=== PATIENT | female | born 1945 | race Caucasian/White ===

== ENCOUNTER 2019-08-26 09:27 | Day surgery (SDC) | payer OTHER ==
[2019-08-22 10:51] LABS: Protime INR 0.89
--- NOTE | 2019-08-22 10:57 | RAD REPORT ---
EXAM DESCRIPTION: Shaan Gordon (2 Views)08/22/2019 10:50 am CLINICAL HISTORY: Preop for heart catheterization COMPARISON: 2017 FINDINGS: The lungs appear clear of acute infiltrate. The heart is normal size IMPRESSION: No acute abnormalities displayed
--- OUTSIDE RECORDS SUMMARY | 2019-08-26 09:29 | XMS REPORT ---
:1945 [facility] Address [address] [place] [address] Dr. Woods [address] [place] [id number] Care Team Providers Name Role Phone Unavailable Unavailable Unavailable Problems This patient has no known problems. Allergies, Adverse Reactions, Alerts This patient has no known allergies or adverse reactions. Medications This patient has no known medications. Encounters Start End Encounter Admission Attending Care Care Encounter Date/Time Date/Time Type Type Clinicians Facility Department ID 2019-06-19 2019-06-19 Outpatient [facility] [id number] 08:42:00 08:42:00
[2019-08-26] MEDS ORDERED: NA CHLORIDE 0.9% 500 ML ONE (09:44)
[2019-08-26] MEDS ORDERED: HEPA 1000U/500MLS 1,000 UNIT/500 ML BAG IV ONE (11:11)
[2019-08-26] MEDS ORDERED: LIDOCAINE 1% MPF 30 ML VIAL ONE (11:12)
[2019-08-26] MEDS ORDERED: ATROPINE SULF 1 MG/10 ML SYR IV ONE (11:20)
[2019-08-26] MEDS ORDERED: MIDAZOLAM HCL 2 MG/2 ML INJ ONE ×2 (11:20→11:26)
[2019-08-26] MEDS ORDERED: FENTANYL CITR 100 MCG/2 ML ONE (11:20)
[2019-08-26] MEDS ORDERED: NA CHLORIDE 0.9% 0 ML ONE (11:21)
[2019-08-26 13:52] VITALS: BP 101/58; TEMP 97.1; O2SAT 98
--- NOTE | 2019-08-26 13:56 | OP ---
Surgeon: Kennedy Hanson MD Ms. Sim is a 74-year-old Latin-[place] woman with multiple cardiac risk factors who has been see n in my office in 2017, had a normal stress test and echocardiogram then. She presented to the [facility] with classic symptoms for unstable angina. I felt more comfortable knowing her coronary anatomy fo r sure. She was scheduled for an outpatient heart catheterization and selective coronary arteriogram . She was admitted to the [facility] as an outpatient on 08/26/2019, prepped and draped in the routine sterile fashion. Given Versed and fentanyl for sedation. Right common femoral access was obtained with a 6-Amharic sheath successfully. Angiography there was normal. Angio-Seal was used to close the case. Selective coronary arteriography was done with 6-Amharic Mariaa catheter, left and right. Th e left main was injected and showed normal coronaries. Left dominant system. The RCA was injected w ith JR4, was small, nondominant, free of disease. There were no complications. Blood Loss: 5 cc. Postoperative Diagnoses: Chest pain with normal heart catheterization, normal coronaries. We will continue medical therapy Anesthesia: Boo Jones. Patient will be observed for 2 hours after bedrest. She will go home after that and she will see me in the office in the next 2 weeks. I will discuss the case further with Dr. Shah. HE/SALOMON Voice ID: [id number] Report ID: [id number]
== END 2019-08-26 13:55 | disposition home health service (06) ==
LOC: CCL 09:27
DX: R07.9 Chest pain, unspecified (principal); R06.02 Shortness of breath; J44.9 Chronic obstructive pulmonary disease, unspecified; E78.5 Hyperlipidemia, unspecified; E78.6 Lipoprotein deficiency; C90.00 Multiple myeloma not having achieved remission; F32.9 Major depressive disorder, single episode, unspecified; Z82.49 Family history of ischemic heart disease and other diseases of the circulatory system
CPT/HCPCS: 36415; 85610; 85730; 71046; 93454; C1893; C1760; J2250 ×2; J3010; J7040; J0583

== ENCOUNTER 2020-06-07 08:15 | Emergency (ER) | payer OTHER ==
--- OUTSIDE RECORDS SUMMARY | 2020-06-07 08:42 | XMS REPORT | Continuity of Care Document ---
:1945 Author Organization [facility] t Address [address] [place] [address] Care Team Providers Name Role Phone Daniel STUBBS Primary Care Physician Unavailable Dc CHAVES, Johnna. Attending Clinician Eladia BLAS C Attending Clinician Daniel Stubbs MD Attending Clinician Rex PATEL, R Attending Clinician Unavailable Radha MORGAN, A Attending Clinician Jose CHAVES Attending Clinician Unavailable Terrell Mas MD Attending Clinician Uri PATEL Attending Clinician Unavailable Payers Payer Name Policy Type Policy Effective Date Expiration Date Sour ce Number MEDICAREMEDICARE PART [id number] 2008 MD Torres A AND 00:00:00 [id number]-P [id number] [place], [facility] AETNA [facility] [id number] 2015 MD Torres SUPPLEMENTAETNA [facility] 00:00:00 SUPPLEMENT-SECONDARY [id number] 2016 -PresentMedigap Problems This patient has no known problems. Allergies, Adverse Reactions, Alerts This patient has no known allergies or adverse reactions. Family History Family Member Diagnosis Comments Start Date Stop Date Source Natural daughter Diabetes Sony son Natural father Prostate cancer MD Megan baez Natural father Skin cancer MD Iverson on Maternal grandfather -Unknown cancer MD Torres Maternal grandmother -Unknown cancer MD Torres Paternal aunt Diabetes MD Torres Paternal uncle Diabetes MD Harper hemphill Social History Social Habit Start Date Stop Date Quantity Comments Source Sex Assigned At MD Iverson on Tobacco use and 2019-11-03 2019-11-03 Never used MD Iverson on exposure 00:00:00 00:00:00 Alcohol intake 2019-11-03 2019-11-03 Lifetime MD Harper hemphill 00:00:00 00:00:00 non-drinker (finding) Smoking Status Start Date Stop Date Source Never smoker MD Torres Medications Ordered Filled Start Stop Current Ordering Indication Dosage Frequency Signature Comments Components Source Medication Medication Date Date Medication? Clinician (SIG) Name Name loratadine/ 2020-0 Yes 1{tbl} Take 1 MD pseudoephed 5-29 tablet by And erso kadi 21:55: mouth as n (CLARITIN-D 28 needed. 24 HOUR ORAL) melatonin 2020-0 Yes 1{capsu Take 1 MD 10 mg cap 5-29 le} capsule by Dane rso 21:55: mouth at n 28 bedtime. diphenhydrA 2020-0 Yes 25mg Take 25 mg MD MINE (Sleep 5-29 by mouth Dane rso Aid, 21:55: nightly as n diphenhydrA 28 needed for MINE,) 25 sleep. mg tablet fluticasone 2020-0 Yes 1{puff} Inhale 1 MD propionate- 5-29 puff by Sony so salmeterol 21:53: mouth 2 n (ADVAIR) 54 (two) 250 mcg-50 times a mcg/inhalat day as ion diskus needed. inhaler donepezil 2020-0 Yes 10mg Take 10 mg MD (ARICEPT) 5-15 by mouth Kishor o 10 mg 00:00: at n tablet 00 bedtime. traMADol 2020-0 Yes 50mg 50 mg 2 MD (ULTRAM) 50 5-12 (two) Anderso mg tablet 00:00: times a n 00 day as needed. hydroxychlo 2020-0 Yes 200mg Take 200 M D roquine 5-08 mg by Anderso (PLAQUENIL) 00:00: mouth n 200 mg 00 twice tablet daily. gabapentin 2020-0 Yes 200mg Take 200 MD (NEURONTIN) 5-08 mg by Anderso 100 mg 00:00: mouth at n capsule 00 bedtime. alendronate 2020-0 Yes 70mg Take 70 mg MD (FOSAMAX) 5-05 by mouth Kishor o 70 mg 00:00: every 7 n tablet 00 days. On Mondays citalopram Yes 20mg Take 20 mg M D (CeleXA) 20 4- by mouth Dane rso mg tablet 00:00: daily. n 00 sulfaSALAzi Yes 1000mg 1,000 mg MD lucio 4-24 twice Anderso (AZULFIDINE 00:00: daily. n ) 500 mg 00 tablet pravastatin Yes 40mg Take 40 mg MD (PRAVACHOL) 3-19 by mouth Dane rso 40 mg 00:00: daily. n tablet 00 Vital Signs Vital Name Observation Time Observation Value Comments Source Body temperature 2019-11-03 15:37:00 36.5 Bushra MD Keira carpenter Body height 2019-11-03 15:37:00 154 cm MD Sony merrill Body weight 2019-11-03 15:37:00 71.8 kg Sony garfield BMI 2019-11-03 15:37:00 30.27 kg/m2 MD Sony merrill Systolic blood pressure 2019-11-03 15:32:22 131 mm[Hg] MD Torres Diastolic blood pressure 2019-11-03 15:32:22 60 mm[Hg] MD Torres Heart rate 2019-11-03 15:32:22 65 /min MD Millerpayam merrill Respiratory rate 2019-11-03 15:32:22 18 /min MD Keira carpenter Oxygen saturation in 2019-11-03 15:32:22 97 /min MD Torres Arterial blood by Pulse oximetry Procedures Procedure Date / Time Performed Performing Clinician [facility] e URINE TOTAL PROTEIN 2019-11-09 14:50:00 Magdalena Stubbs MD Sony son .TOTAL VOLUME 2019-11-09 14:50:00 Magdalena Stubbs MD .DR. CHENG U PROT ELEC PATH 2019-11-09 14:50:00 Gisselle Montilla MD REVIEW .DR. CHENG UIFE PATH REVIEW 2019-11-09 14:50:00 Gisselle Montilla MD COMPLETE BLOOD COUNT W/ 2019-11-03 18:04:00 Gisselle Montilla MD DIFFERENTIAL PROTHROMBIN TIME 2019-11-03 18:04:00 Gisselle Montilla MD PARTIAL THROMBOPLASTIN TIME 2019-11-03 18:04:00 Gisselle Montilla MD TYPE AND SCREEN 2019-11-03 18:04:00 Gisselle Montilla MD COMPREHENSIVE METABOLIC PANEL 2019-11-03 18:04:00 Gisselle Montilla MD MAGNESIUM LEVEL 2019-11-03 18:04:00 Gisselle Montilla MD PHOSPHORUS LEVEL 2019-11-03 18:04:00 Gisselle Montilla MD URIC ACID 2019-11-03 18:04:00 Gisselle Montilla MD IMMUNOGLOBULIN M SERUM 2019-11-03 18:04:00 Gisselle Montilla MD derson FREE LAMBDA LIGHT CHAIN 2019-11-03 18:04:00 Gisselle Montilla MD nderson IMMUNOFIXATION 2019-11-03 18:04:00 Gisselle Montilla MD ELECTROPHORESIS BETA 2 MICROGLOBULIN 2019-11-03 18:04:00 Gisselle Montilla MD Dane rson LACTATE DEHYDROGENASE 2019-11-03 18:04:00 Gisselle Montilla MD And erson THYROID STIMULATING HORMONE 2019-11-03 18:04:00 Gisselle Montilla MD FREE THYROXINE 2019-11-03 18:04:00 Gisselle Montilla MD HEMOGLOBIN A1C 2019-11-03 18:04:00 Gisselle Montilla MD VITAMIN D 25 HYDROXY LEVEL 2019-11-03 18:04:00 Gisselle Montilla HEPATITIS B CORE ANTIBODY 2019-11-03 18:04:00 Gisselle Montilla MD HEPATITIS C VIRUS ANTIBODY 2019-11-03 18:04:00 Gisselle Montilla HC HIV 1/2 AG AND AB 4TH GEN 2019-11-03 18:04:00 Gisselle Montilla MD Results CBC 2019-11-03 18:04:00 Gisselle Montilla MD MANUAL DIFFERENTIAL 2019-11-03 18:04:00 Gisselle Montilla MD GLUCOSE LEVEL 2019-11-03 18:04:00 Gisselle Montilla MD BLOOD UREA NITROGEN 2019-11-03 18:04:00 Gisselle Montilla MD ELECTROLYTE PANEL 2019-11-03 18:04:00 Gisselle Montilla MD Andtono n SERUM CREATININE 2019-11-03 18:04:00 Gisselle Montilla MD .GLOMERULAR FILTRATION RATE 2019-11-03 18:04:00 Gisselle Montilla MD CALCIUM LEVEL TOTAL 2019-11-03 18:04:00 Gisselle Montilla MD Sony son ALBUMIN LEVEL 2019-11-03 18:04:00 Gisselle Montilla MD ALKALINE PHOSPHATASE 2019-11-03 18:04:00 Gisselle Montilla MD rson ALANINE AMINOTRANSFERASE 2019-11-03 18:04:00 Gisselle Montilla MD ASPARTATE AMINOTRANSFERASE 2019-11-03 18:04:00 Gisselle Montilla TOTAL PROTEIN 2019-11-03 18:04:00 Gisselle Montilla MD FRACTIONATED BILIRUBIN 2019-11-03 18:04:00 Gisselle Montilla MD derson ABORH 2019-11-03 18:04:00 Gisselle Montilla MD ANTIBODY SCREEN 2019-11-03 18:04:00 Gisselle Montilla MD FREE KAPPA/FREE LAMBDA RATIO 2019-11-03 18:04:00 Gisselle Montilla MD CLOT EXPIRATION DATE 2019-11-03 18:04:00 Gisselle Montilla MD rson TMP INTERPRETATION ANTIBODY 2019-11-03 18:04:00 Gisselle Montilla MD SCREEN NEGATIVE TMP HIV 1/2 AG&AB PATH INTERP 2019-11-03 18:04:00 Gisselle Montilla MD TMP HBSAG INTERP 2019-11-03 18:04:00 Gisselle Montilla MD TMP HCVAB INTERP 2019-11-03 18:04:00 Gisselle Montilla MD TMP HBCAB INTERP 2019-11-03 18:04:00 Gisselle Montilla MD .DR. HURD PROT ELEC PATH 2019-11-03 18:04:00 Gisselle Montilla MD REVIEW .DR. HURD SHAYLA PATH REVIEW 2019-11-03 18:04:00 Gisselle Montilla CONFIRM ABORH TYPE 2019-11-03 17:56:00 Magdalena Stubbs MD on XR BONE SURVEY COMPLETE 2019-11-03 17:55:36 Gisselle Montilla MD nderson BONE MARROW REFERRAL 2019-09-02 00:00:00 System, Provider Not MD Torres In HEMATOPATHOLOGY BONE MARROW 2019-09-01 14:42:04 Conversion, Julio C Torres DIFFERENTIAL OSI CHEST 2019-08-22 20:57:12 Magdalena Stubbs MD OSI MRI UPPER EXT 2019-08-21 20:57:35 Magdalena Stubbs MD OSI MRI UPPER EXT 2019-08-21 20:57:24 Magdalena Stubbs MD OSI KNEE 2019-08-11 21:58:00 Magdalena Stubbs MD OSI KNEE 2019-08-11 21:57:48 Magdalena Stubbs MD OSI PET CT SKULL TO MID THIGH 2019-07-17 13:51:55 Phani Gordillo dma, MD BONE MARROW REFERRAL HISTORIC 2019-06-19 18:00:00 Conversion, Phani Torres Encounters Start End Encounter Admission Attending Care Care Encounter Source Date/Time Date/Time Type Type Clinicians Facility Department ID 2019-06-19 2019-06-19 Outpatient [facility] 08:42:00 08:42:00 Results Test Description Test Time Test Comments Results Result Comments Source Urine SHAYLA Path Review 2019-11-11 16:13:04 Test Item Value Reference Range Interpretation Comme nts UIFE The urine PABLO Bunch protein MD Iggy CHENG 1018 4Dictated by: PABLO CHENG MD - Int immunofixation [id number] Date/Time: 11.11.2019 11:13 AM CDT (test electrophoretic Transcribed Date/Time: 11.11.2019 11:13 AM CDTElectronically code = patterns Signed By: NELLA CHENG MD - [id number] on 11.11.2019 11:13 AM 7917) obtained with the use of antisera against IgG, IgA, IgM, bound kappa and bound lambda light chains, free kappa and free 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 MD TorresIFE [id number] 16:13:03 Test Item Value Reference Range Interpretation Comments UIFE (test code = [employer] 7916) ABIGAIL (test code = ABIGAIL) Schedule labs after new patient clinic visit. MD TorresUrine Prot Electrophoresis Path [id number] 16:13:02U ProE Path IntThe urine protein electrophoretic pattern shows a peak in the mid gamma region. It isconfirmed to be a monotypic free kappa light chain by SHAYLA studies. 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 The current Bence-Rivas protein excretion is 98 mg/day. Comment: MD Iggy RUBIO [id number] by: ELISEO RUBIO84Dictated Date/Time: 11.11.2019 11:13 AM CDT Transcribed Date/Time: 11.11.2019 11:13 AM CDTElectronically Signed By: MD Iggy RUBIO [id number] on 11.11.2019 11:13 AM [facility] Protein Electrophoresis [id number] 16:13:01 Test Item Value Reference Range Interpretation Comments U Albumin % (test code = 19.9 % 30-50 L 7676) U Glob (test code = 8520) 37.1 % 50-66 L U Bence Rivas (test code = 43.0 % 0-0 H 7696) U BJP/TV (test code = 98 7691) ABIGAIL (test code = ABIGAIL) Schedule labs after new patient clinic visit. Lab Interpretation (test Abnormal code = 59398-6) MD TorresIpohsmrp94aa Urine Total [id number] 04:39:24 Test Item Value Reference Range Interpretation Comments UTP (test code = 7921) 12 mg/dL <=149 UTP/TV (test code = 7923) 228 MD TorresTotal [id number] 03:33:21 Test Item Value Reference Range Interpretation Comments Total Volume (test code = 7650) 1900 mL 9742-2955 H Hrs Collected (test code = 5928) 24 Start Date (test code = 7382) 11/08/2019 End Date (test code = 5510) 11/09/2019 U24 Comment (test code = 8547) 09:50am Lab Interpretation (test code = Abnormal 32004-2) MD TorresProtein Electrophoresis Path [id number] 19:46:40 Test Item Value Reference Range Interpretation Comments SPE Path The serum protein Interp (test electrophoretic code = 7285) pattern shows a AGUILAR HURD MD protein peak in the PHD 140 6Dictated by: gamma region which is DOMINIK HURD MD [place]D [place] be 43155Asujdmx d positive for an IgA Date/Justo e: 11.05.2019 kappa M-protein by 14:46 PM CDT immunofixation Transcribed D ate/Time: studies. Normal 11.05.2019 1 4:46 PM polyclonal CDTElectronical ly immunoglobulins are Signed B y: DOMINIK also decreased. 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 Comment: ___ DOMINIK HURD MD PHD [id number] by: DOMINIK HURDRALPH [facility]. [facility] [id number] Date/Time: 11.05.2019 14:46 PM CDT Transcribed Date/Time: 11.05.2019 14:46 PM CDTElectronically Signed By: DOMINIK HURD MD PHD [id number] on 11.05.2019 14:[address] [facility] [id number] 19:46:38 Test Item Value Reference Range Interpretation Comments SHAYLA (test code = [place] + [place] 5948) ABIGAIL (test code = ABIGAIL) Schedule labs after new patient clinic visit. MD Asif Protein [id number] 19:46:37 Test Item Value Reference Range Interpretation Comments TOT PROTEIN (test code = 7.6 6.4- 8.3 gm/dL 8545) Albumin (test code = 4.5 3.6- 5.4 gm/dL 1751-7) Alpha 1 Globulin (test 0.3 0.2- 0.4 gm/dL code = 2865-4) Alpha 2 Globulin (test 0.6 0.5- 1.0 gm/dL code = 2868-8) Beta Globulin (test code = 0.7 0.5- 1.1 gm/dL 2871-2) Gamma Globulin (test code 1.5 0.7- 1.6 gm/dL = 2874-6) Paraprotein1 (test code = 1.0 0.0- 0.0 gm/dL H 11227-0) ABIGAIL (test code = ABIGAIL) Schedule labs after new patient clinic visit. Lab Interpretation (test Abnormal code = 58722-1) MD Oneill Interpretation Antibody Screen [id number] 13:26:22 Test Item Value Reference Range Interpretation Comments TMP Auto Neg At the present ABSC Interp time, patient (test code = plasma shows no ____DALE GARCIA MD - 4735) evidence of RBC 51489Axfhici d by: DALE alloantibodies. MD Iggy VOGT 25901Vspzmxkk D ate/Time: 11.04.2019 8:26 AM CDT Transcribed Rick e/Time: 11.04.2019 8:26 AM CDTElectronical ly Signed By: MD Iggy MADDEN [id number] on 11.03 8:26 AM Jonathan Oneill HIV 1/2 Ag&Ab Path [id number] 13:19:56 Test Item Value Reference Range Interpretation Comments HIV 1/2 Ag&Ab Negative for Interp (test HIV-1 antigen and code = 9394) HIV-1/HIV-2 ____DALE CHAVIRA MD - [place]. [place] 80229Xiqncnmo by: DALE laboratory CARLOS GARCIA MD - evidence of HIV 83817Gctxtuz d Date/Time: infection. If 11.04.2019 8:1 9 AM CDT acute HIV Transcribed Rick e/Time: infection is 11.04.2019 8:19 AM suspected, CDTElectronical ly Signed consider testing By: DALE GARCIA MD - for HIV-1 RNA. [id number] on 8:19 AM Jonathan Oneill HCV Ab Path [id number] 13:19:55 Test Item Value Reference Range Interpretation Comments HCV Ab Path There is NO Interp (test serologic code = 8923) evidence of ____DALE CHAVIRA MD - Hepatitis C 22323Pfsoafgl b y: DALE virus antibody. CARLOS GARCIA MD - 18147Kubzjuug D ate/Time: 11.04.2019 8:19 AM CDT Transcribed Rick e/Time: 11.04.2019 8:19 AM CDTElectronical ly Signed By: DALE CHAVIRA MD - [id number] on 11.03 8:19 AM Jonathan Oneill HBsAg Path [id number] 13:19:54 Test Item Value Reference Range Interpretation Comments HBsAg Path There is NO Interp (test serologic code = 8922) evidence of ____DALE CHAVIRA MD - detectable 23507Tzprjwwx b y: DALE Hepatitis B virus Daniel VOGT - surface antigen. 01960Abzbaj ed Date/Time: 11.04.2019 8:19 AM CDT Transcribed Rick e/Time: 11.04.2019 8:19 AM CDTElectronical ly Signed By: DALE CHAVIRA MD - [id number] on 11.03 8:19 AM Jonathan Oneill HBcAb Path [id number] 13:17:51 Test Item Value Reference Range Interpretation Comments HBcAb Path There is NO Interp (test serologic code = 8924) evidence of ____DALE CHAVIRA MD - Hepatitis B 08813Ttkcdama b y: DALE newman core CARLOS GARCIA MD - antibody. 52293Byvxaoaj D ate/Time: 11.04.2019 8:17 AM CDT Transcribed Rick e/Time: 11.04.2019 8:17 AM CDTElectronical ly Signed By: MD Iggy MADDEN [id number] on 11.03 8:17 AM C MD Estrada B Total Ig Core Ab (SCREENING) (anti-HBc total Ig; HBcAb total Ig)2019-11-04 01:39:41 Test Item Value Reference Range Interpretation Comments HBcAb. (test Non Reactive Non Reactive Performed at: code = 5742) [facility] [place] [address] ABIGAIL (test code Schedule labs after = ABIGAIL) new patient clinic visit. MD Estrada C Virus [id number] 01:39:34 Test Item Value Reference Range Interpretation Comments HCVAb. (test Non Reactive Non Reactive Performed at: code = 5762) [facility] [address] ABIGAIL (test code Schedule labs after = ABIGAIL) new patient clinic visit. MD Estrada B Surface [id number] 01:39:22 Test Item Value Reference Range Interpretation Comments HBsAg. (test Non Reactive Non Reactive Performed at: code = 5747) [facility] [address] ABIGAIL (test code Schedule labs after = ABIGAIL) new patient clinic visit. MD TorresHIV-1/2 Antigen and Antibodies, Fourth [id number] 23:30:23 Test Item Value Reference Range Interpretation Comments HIV 1/2 Ag & Non Reactive Non Reactive Performed at:MD Booker, [address] [place] [address] Blood Donor (test code = Hqbjcs0570 [address]) [place] [address] ABIGAIL (test code Schedule labs after = ABIGAIL) new patient clinic visit. MD TorresAntibody [id number] 19:42:10 Test Item Value Reference Range Interpretation Comments ABSC. (test code = Negative ABSC 890-4) ABIGAIL (test code = ABIGAIL) Schedule labs after new patient clinic visit. MD TorresFvdhnfmlSIPQg3771-78-05 19:42:09 Test Item Value Reference Range Interpretation Comments ABORh. (test code = B POS 882-1) ABIGAIL (test code = ABIGAIL) Schedule labs after new patient clinic visit. MD TorresClot Expiration [id number] 19:42:08 Test Item Value Reference Range Interpretation Comments T & S Expiration (test code = 11/06/2019 5318) MD TorresVitamin D [id number] 19:36:30 Test Item Value Reference Range Interpretation Comments Vitamin D 25 OH 37 ng/mL 30-100 Reference Ra nge: (test code = Deficiency: 8018) <10 ng/mLInsufficie ncy: 10-29 ng/mLSufficienc y: 30-100 ng/mLPotential toxicity: >10 0 ng/mL ABIGAIL (test code = Schedule labs ABIGAIL) after new patient clinic visit. MD Naayk [employer]/Free Lambda [id number] 19:21:49 Test Item Value Reference Range Interpretation Comments FKap/FLam RT (test code = 5566) 31.25 0.26-1.65 H Lab Interpretation (test code = Abnormal 03983-0) MD Nayak Lambda Light [id number] 19:21:48 Test Item Value Reference Range Interpretation Comments Free Lambda (test code 7.49 mg/L 5.71-26.3 = 5630) ABIGAIL (test code = ABIGAIL) Schedule labs after new patient clinic visit. MD Nayak [employer] Light [id number] 19:21:47 Test Item Value Reference Range Interpretation Comments Free [employer] (test code = 234.09 mg/L 3.3-19.4 H 5629) ABIGAIL (test code = ABIGAIL) Schedule labs after new patient clinic visit. Lab Interpretation (test Abnormal code = 76132-8) MD TorresBeta 2 [id number] 19:21:46 Test Item Value Reference Range Interpretation Comments Beta2 Microglob (test 1.9 mg/L 0.8-2.3 code = 5090) ABIGAIL (test code = ABIGAIL) Schedule labs after new patient clinic visit. MD TorresAngqglphRiX0651-22-37 19:21:45 Test Item Value Reference Range Interpretation Comments IgM (test code = 6023) 12 mg/dL 35-242 L ABIGAIL (test code = ABIGAIL) Schedule labs after new patient clinic visit. Lab Interpretation (test Abnormal code = 08693-5) MD [id number] 19:21:44 Test Item Value Reference Range Interpretation Comments IgG (test code = 6001) 359 mg/dL 610-1616 L ABIGAIL (test code = ABIGAIL) Schedule labs after new patient clinic visit. Lab Interpretation (test Abnormal code = 02431-2) MD [id number] 19:21:43 Test Item Value Reference Range Interpretation Comments IgA (test code = 5992) 1485 mg/dL 85-499 H ABIGAIL (test code = ABIGAIL) Schedule labs after new patient clinic visit. Lab Interpretation (test Abnormal code = 59778-0) MD TorresHemoglobin [id number] 19:15:59 Test Item Value Reference Range Interpretation Comments A1C (test code = 4632) <4.2 4.3-5.6 L HbA1c values >=6.5% are diagnostic of diabetes mellitus.Diagno si s should be confirmed by repeat testing.Therape ut ic Action suggested: >8.0 % HbA1c; Goal oftherapy: <7.0 % HbA1c ABIGAIL (test code = ABIGAIL) Schedule labs after new patient clinic visit. Lab Interpretation Abnormal (test code = 35675-3) MD TorresConfirm [id number] 19:12:08 Test Item Value Reference Range Interpretation Comments ABORh Confirm. (test code = 882-1) B POS MD TorresFractionated [id number] 19:03:38 Test Item Value Reference Range Interpretation Comments Bili Total (test 0.5 mg/dL <=1.2 Indocyanine Green code = 5096) (ICG) may cause falsely elevate d bilirubin resul ts. Total and direc t bilirubin must not be measured from s amples containing indo cyanine green. False el evation of total biliru bin can be seen in dee ents with IgG concentrations above 28 g/L. Bili Direct 0.1 mg/dL <=0.3 Indocyanine Gre en (test code = (ICG) may cause 5094) falsely elevate d bilirubin resul ts. Total and direc t bilirubin must not be measured from s amples containing indo cyanine green. Bili Indirect 0.4 mg/dL 0-0.9 (test code = 5095) ABIGAIL (test code = Schedule labs ABIGAIL) after new patient clinic visit. MD TorresGlomerular Filtration [id number] 19:03:37 Test Item Value Reference Range Interpretation Comments eGFR-AA (test code = 66 >=60 Normal eGFR: >= 60 8062) mL/min/1.73 sq. mL/min/1.73 m2Note: m The eGFR is calculated usin g the CKD-EPI equatio n. The eGFR declin es with age. eGFR <60 mL/min/1.73 m2 is considered as "decreased". Th is equation should only be used for pat ients 18 and older. According to th e National Kidney Foundation's Ki dney Disease Outcome Quality Initiat nai (KDOQI) classification and 2012 Kidney Dis ease Improving Globa l Outcomes (KDIGO ) Clinical Practi ce Guideline, the stage of CKD should b e categorized bas ed on estimated GFR. Stage Description GFR mL/min/1.73 m21 Normal or high GFR >=902 M ildly decreased GFR 60-893a Mildly to moder ately decreased GFR 45-593b Moderat ky to severely decreased GFR 30-444 Severely decreased GFR 15-295 Kidney failure < 15 eGFR-KATJA (test code = 58 >=60 L Normal eGFR: >= 60 8063) mL/min/1.73 sq. mL/min/1.73 m2Note: m The eGFR is calculated usin g the CKD-EPI equatio n. The eGFR declin es with age. eGFR <60 mL/min/1.73 m2 is considered as "decreased". Th is equation should only be used for pat ients 18 and older. According to th e National Kidney Foundation's Ki dney Disease Outcome Quality Initiat nai (KDOQI) classification and 2012 Kidney Dis ease Improving Globa l Outcomes (KDIGO ) Clinical Practi ce Guideline, the stage of CKD should b e categorized bas ed on estimated GFR. Stage Description GFR mL/min/1.73 m21 Normal or high GFR >=902 M ildly decreased GFR 60-893a Mildly to moder ately decreased GFR 45-593b Moderat ky to severely decreased GFR 30-444 Severely decreased GFR 15-295 Kidney failure < 15 ABIGAIL (test code = ABIGAIL) Schedule labs after new patient clinic visit. Lab Interpretation Abnormal (test code = 05216-8) MD TorresUric [id number] 19:03:36 Test Item Value Reference Range Interpretation Comments Uric Acid (test code 3.8 mg/dL 2.4-5.7 = 7955) ABIGAIL (test code = ABIGAIL) Schedule labs after new patient clinic visit. MD TorresTotal [id number] 19:03:35 Test Item Value Reference Range Interpretation Comments Total Protein (test 7.6 g/dL 6.4-8.3 code = 7649) ABIGAIL (test code = ABIGAIL) Schedule labs after new patient clinic visit. MD TorresMagnesium [id number] 19:03:34 Test Item Value Reference Range Interpretation Comments Magnesium (test code = 2.1 mg/dL 1.6-2.6 6359) ABIGAIL (test code = ABIGAIL) Schedule labs after new patient clinic visit. MD TorresAlkaline [id number] 19:03:33 Test Item Value Reference Range Interpretation Comments Alk Phos (test code = 60 U/L 35-104 4768) ABIGAIL (test code = ABIGAIL) Schedule labs after new patient clinic visit. MD [id number] 19:03:32 Test Item Value Reference Range Interpretation Comments ALT (test code = 4705) 35 U/L <=33 H ABIGAIL (test code = ABIGAIL) Schedule labs after new patient clinic visit. Lab Interpretation (test Abnormal code = 71903-7) MD Torres.Serum [id number] 19:03:31 Test Item Value Reference Range Interpretation Comments Creatinine (test code = 0.96 mg/dL 0.51-0.95 H 5399) ABIGAIL (test code = ABIGAIL) Schedule labs after new patient clinic visit. Lab Interpretation (test Abnormal code = 92808-2) MD [id number] 19:03:29 Test Item Value Reference Range Interpretation Comments BUN (test code = 12 mg/dL 6-23 5055) ABIGAIL (test code = ABIGAIL) Schedule labs after new patient clinic visit. MD TorresPhosphorus [id number] 19:03:28 Test Item Value Reference Range Interpretation Comments Phosphorus (test code = 3.6 mg/dL 2.5-4.5 6817) ABIGAIL (test code = ABIGAIL) Schedule labs after new patient clinic visit. MD [id number] 19:03:27 Test Item Value Reference Range Interpretation Comments LDH (test code = 322 U/L 135-214 H Results gre ater 6111) than 1800 U/L m ay not be reliable due to matrix effect with extended diluti on as it exceeds t he banquet supervisor s recommended limit. Caution should be exercised when interpreting ramon ch values and done in conjunction wit h clinical contex t. ABIGAIL (test code = ABIGAIL) Schedule labs after new patient clinic visit. Lab Interpretation Abnormal (test code = 50024-0) MD TorresCalcium [id number] 19:03:26 Test Item Value Reference Range Interpretation Comments Calcium Lvl (test code 9.6 mg/dL 8.4-10.2 = 5258) ABIGAIL (test code = ABIGAIL) Schedule labs after new patient clinic visit. MD TorresAlbumin [id number] 19:03:25 Test Item Value Reference Range Interpretation Comments Albumin Lvl (test code 4.7 3.5- 5.2 gm/dL = 4763) ABIGAIL (test code = ABIGAIL) Schedule labs after new patient clinic visit. MD TorresAspartate [id number] 19:03:24 Test Item Value Reference Range Interpretation Comments AST (test code = 29 U/L <=32 4731) ABIGAIL (test code = ABIGAIL) Schedule labs after new patient clinic visit. MD TorresElectrolyte [id number] 19:03:23 Test Item Value Reference Range Interpretation Comments Sodium Lvl (test code = 141 136- 145 mEq/L 7355) Potassium Lvl (test 3.6 3.5- 5.1 mEq/L code = 6854) Chloride (test code = 104 98- 107 mEq/L 5279) CO2 (test code = 5227) 23 22- 29 mEq/L Anion Gap (test code = 14 4- 14 mEq/L 9325) ABIGAIL (test code = ABIGAIL) Schedule labs after new patient clinic visit. MD TorresGlucose [id number] 19:03:21 Test Item Value Reference Range Interpretation Comments Glucose Level 96 mg/dL 70-99 Reference rang e is (test code = valid for fasti ng 5699) specimens only. Guidelines established by the [place] [employer] guidelines (Standards of Medical Care in Diabetes 2016. Diabetes Care 2 016; 39: S13-22) are that a fasting gluco se of greater than or equal to 126 mg /dL or a random glu cose greater than or equal to 200 mg /dL with symptoms, that are confirmed b y repeat testing on a different day, meet the criteria fo r diabetes mellit us. ABIGAIL (test code = Schedule labs ABIGAIL) after new patient clinic visit. MD TorresFree [id number] 19:03:20 Test Item Value Reference Range Interpretation Comments T4 Free (test code = 0.96 ng/dL 0.93-1.7 7502) ABIGAIL (test code = ABIGAIL) Schedule labs after new patient clinic visit. MD [id number] 19:03:19 Test Item Value Reference Range Interpretation Comments TSH (test code = 7578) 8.99 0.27- 4.20 H mcunit/mL ABIGAIL (test code = ABIGAIL) Schedule labs after new patient clinic visit. Lab Interpretation (test Abnormal code = 13967-4) MD TorresPartial Thromboplastin [id number] 18:41:36 Test Item Value Reference Range Interpretation Comments PTT (test code = 26.3 24.2- 36.0 second(s) 72424-3) ABIGAIL (test code = Schedule labs after ABIGAIL) new patient clinic visit. MD TorresProthrombin Time with [id number] 18:41:35 Test Item Value Reference Range Interpretation Comments PT (test code = 13.1 12.0- 14.3 second(s) 5902-2) INR (test code = 1.01 0.90-1.10 6301-6) ABIGAIL (test code = Schedule labs after ABIGAIL) new patient clinic visit. MD T[id number] 18:28:58 Test Item Value Reference Range Interpretation Comments Neutrophil % (test 63.2 % 42-66 code = 6491) Lymphocyte % (test 26.5 % 24-44 code = 6194) Monocyte % (test code 7.1 % 2-7 H = 6422) Eosinophil % (test 1.9 % 1-4 code = 5520) Basophil % (test code 0.8 % 0-1 = 5068) IGRE % (test code = 0.5 % 0-0.4 H IGRE % c ount 5958) includes Metamyelocytes, Myelocytes, and Promyelocytes. Neutrophil Abs (test 2.31 K/uL 1.7-7.3 code = 6492) Lymphocyte Abs (test 0.97 K/uL 1-4.8 L code = 6195) Monocyte Abs (test 0.26 K/uL 0.08-0.7 code = 6423) Eosinophil Abs (test 0.07 K/uL 0.04-0.4 code = 5521) Basophil Abs (test 0.03 K/uL 0-0.1 code = 5069) IG Abs (test code = 0.02 K/uL 0-0.04 5954) ABIGAIL (test code = ABIGAIL) Schedule labs after new patient clinic visit. Lab Interpretation Abnormal (test code = 17907-8) MD Torres.[id number] 18:28:54 Test Item Value Reference Range Interpretation Comments WBC (test code = 3.7 K/uL 4-11 L 8034) RBC (test code = 3.70 4.00- 5.50 M/uL L 6932) Hgb (test code = 11.9 12.0- 16.0 L 5898) gm/dL Hct (test code = 36.2 % 37-47 L 5860) MCV (test code = 98 fL 82-98 6222) MCH (test code = 32.2 pg 27-31 H 6220) MCHC (test code = 32.9 31.0- 36.0 6221) gm/dL RDW-SD (test code = 54.3 fL 35.1-46.3 H 6972) RDW-CV (test code = 15.0 % 12-15.5 6971) Platelet count (test 144 K/uL 140-440 code = 6832) MPV (test code = 11.1 fL 4-10.4 H 6282) INRBC (test code = 0.0 % <=0.0 The INRBC 5974) (instrument NRB C) value reflects the enumerationof nucleated red b lood cells contained in a 200uL sampleo f whole blood analyzed by the instrument. Thi s value maydiffer from the NRBC v alue reported in a manual differential,wh ich is based on a 1 00 cell differenti al. ABIGAIL (test code = ABIGAIL) Schedule labs after new patient clinic visit. 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 Assess for extentof disease and treatment planningComparison: NoneTechnique: XR BONE SURVEY COMPLETEFindings: 1. Complete bone survey with appendicular skeleton. 21 images.2. Appendicular bone mineral content approximately appropriate for age and gender with axial demineralization.3. Negative calvarium.4. No spinal fractures. Cervical spine degenerative disc disease from C5 through C7 with apophyseal joint osteoarthri tis at most levels and with loss of normal cervical lordosis. Previous dorsal spinal fusion from L3 through L5 with a grade 2 anterior spondylolisthesis of L5 with respect to S1. Rods and screws are intact. A spinal stimulator is present.5. Negative shoulder girdles. 6. Unremarkable ribs. No fracturesor myelomatous lesions detected.7 negative examination of the pelvis. Right total hip arthroplasty.8. Unremarkable upper extremity long bones.9. Unremarkable lower extremity long bones other than righttotal hip arthroplasty.10. Osteoarthritis of the knee joints.. IMPRESSION:Baseline characterization of the skeleton without discrete myelomatous lesions.MD Briceno PET CT Skull to Mid [id number] 12:52:08For comparison only. No interpretation requested.MD Briceno [id number] 20:58:04For comparison only. No interpretation requested.MD Briceno MRI Upper [id number] 20:57:40For comparison only. No interpretation requested.MD Briceno [id number] 20:57:18For comparison only. No interpretation requested.MD Torres
[2020-06-07] MEDS ORDERED: dexAMETHasone 10 MG/ML VIAL ONE (08:55)
[2020-06-07] MEDS ORDERED: MEPERIDINE HCL 25 MG/ML SYR ONE (08:56)
--- NOTE | 2020-06-07 09:16 | RAD REPORT ---
EXAM DESCRIPTION: CT - CTHCSPWOC - 06/07/2020 9:04 am CLINICAL HISTORY: Trauma, head and neck injury. headache, neck pain COMPARISON: No comparisons TECHNIQUE: Axial 5 mm thick images of the head were obtained. Axial 2 mm thick images of the cervical spine were obtained with sagittal and coronal reconstruction images generated and reviewed. All CT scans are performed using dose optimization technique as appropriate and may include automated exposure control or mA/KV adjustment according to patient size. FINDINGS: CT HEAD WITHOUT CONTRAST: No acute hemorrhage, hydrocephalus or extra-axial collection is identified.Mild brain atrophy.No area s of brain edema or midline shift. The paranasal sinuses and mastoids are clear.The calvarium is intact. CT CERVICAL SPINE WITHOUT CONTRAST: No fracture or traumatic subluxation.3 mm degenerative anterolisthesis of C4 on 5 is present. Promine nt disc thinning with posterior osteophyte formation at C5-6 and C6-7.No prevertebral soft tissues sw elling is identified. IMPRESSION: No acute intracranial or cervical spine findings. Moderate lower cervical degenerative spondylosis.
--- NOTE | 2020-06-07 09:28 | EDPHYS ---
Physician Documentation [facility] Name: Bassam Sim Age: 75 yrs Sex: Female : 1945 Arrival Date: 06/07/2020 Time: 08:20 Bed 19 Private MD: ED Physician Shakeel España HPI: 06/07 08:31 This 75 yrs old Female presents to ER via EMS with complaints of Neck Pain, rn >24Hrs Old. 08:31 The patient or guardian complains of pain. The symptoms are located on the left neck. rn Onset: The symptoms/episode began/occurred 3 day(s) ago. Associated signs and symptoms: Pertinent positives: This patient does not have any pertinent positive signs or symptoms associated with neck pain. Pertinent negatives: fever, bladder incontinence, bowel incontinence, nausea, numbness, tingling, vomiting, weakness. The pain does not radiate. Modifying factors: The symptoms are alleviated by remaining still, neck brace. Severity of symptoms: At their worst the symptoms were moderate, in the emergency department the symptoms are unchanged. The patient has not experienced similar symptoms in the past. The patient has not recently seen a physician. Reports neck pain when waking up 3 days ago, no injury, no radiation, left neck along muscle, headache started today, improved with motrin. No fever. Reports better with ice and wearing neck brace. . Historical: - Allergies: 08:26 No Known Allergies; iw - Home Meds: 08:29 Tramadol Oral [Active]; citalopram oral [Active]; gabapentin oral oral [Active]; iw hydroxychloroquine oral oral [Active]; donepezil oral oral [Active]; Cyclobenzaprine Oral [Active]; - PMHx: 08:26 Asthma; iw - PSHx: 08:29 L foot surgery; hip sx; back sx; iw - Immunization history:: Adult Immunizations up to date. - Social history:: Smoking status: Patient denies any tobacco usage or history of. - Family history:: not pertinent. - Hospitalizations: : No recent hospitalization is reported. ROS: 08:31 Constitutional: Negative for fever, chills, and weight loss, Eyes: Negative for injury, rn pain, redness, and discharge, Neck: Negative for injury, and swelling, Cardiovascular: Negative for chest pain, palpitations, and edema, Respiratory: Negative for shortness of breath, cough, wheezing, and pleuritic chest pain, Abdomen/GI: Negative for abdominal pain, nausea, vomiting, diarrhea, and constipation, Back: Negative for injury and pain, MS/Extremity: Negative for injury and deformity, Skin: Negative for injury, rash, and discoloration, Neuro: Negative for weakness, numbness, tingling, and seizure Exam: 08:31 Constitutional: This is a well developed, well nourished patient who is awake, alert, rn and in no acute distress. Head/Face: Normocephalic, atraumatic. Eyes: Pupils equal round and reactive to light, extra-ocular motions intact. Lids and lashes normal. Conjunctiva and sclera are non-icteric and not injected. Cornea within normal limits. Periorbital areas with no swelling, redness, or edema. ENT: No oral swelling Neck: Trachea midline, no masses palpated, and no cervical lymphadenopathy. + mild left lateral/posterior neck tenderness, no midline cervical tenderness MS/ Extremity: Pulses equal, no cyanosis. Neuro: Awake and alert, GCS 15, oriented to person, place, time, and situation. Cranial nerves II-XII grossly intact. Motor strength 5/5 in all extremities. Sensory grossly intact. Vital Signs: 08:21 BP 134 / 83; Pulse 84; Resp 16; Temp 98.1; Pulse Ox 100% on R/A; Weight 68.04 kg; iw Height 5 ft. 0 in. (152.40 cm); Pain 10/10; 09:30 BP 130 / 80; Pulse 81; Resp 17; Pulse Ox 100% ; jl7 08:21 Body Mass Index 29.29 (68.04 kg, 152.40 cm) iw MDM: 08:20 Patient medically screened. rn 09:26 Differential diagnosis: arthritis, Cervical Disc Herniation Cervical Raiculopathy rn Cervical Spondylosis cervical strain, Osteoarthritis Spondylolisthesis torticollis. Data reviewed: vital signs, nurses notes, radiologic studies, CT scan, and as a result, I will discharge patient. Counseling: I had a detailed discussion with the patient and/or guardian regarding: the historical points, exam findings, and any diagnostic results supporting the discharge/admit diagnosis, radiology results, the need for outpatient follow up, to return to the emergency department if symptoms worsen or persist or if there are any questions or concerns that arise at home. Response to treatment: the patient's symptoms have mildly improved after treatment, and as a result, I will discharge patient. Special discussion: I discussed with the patient/guardian in detail that at this point there is no indication for admission to the hospital. It is understood, however, that if the symptoms persist or worsen the patient needs to return immediately for re-evaluation. 06/07 08:28 Order name: CT Head C Spine; Complete Time: 09:18 rn 06/07 08:28 Order name: IV Start; Complete Time: 08:38 rn Administered Medications: 08:40 Drug: Decadron - Dexamethasone 10 mg Route: IVP; Site: left antecubital; jl7 09:00 Follow up: Response: No adverse reaction; Pain is decreased jl7 08:45 Drug: Demerol - Meperidine 12.5 mg Route: IVP; Site: left antecubital; jl7 09:00 Follow up: Response: No adverse reaction; Pain is decreased jl7 Disposition: 06/07/20 09:27 Discharged to Home. Impression: Torticollis, Cervical disc disorder with radiculopathy. - Condition is Stable. - Discharge Instructions: Cervical Radiculopathy, Acute Torticollis, Adult, Neck Exercises. - Prescriptions for Cyclobenzaprine 10 mg Oral Tablet - take 1 tablet by ORAL route every 8 hours As needed; 15 tablet. Medrol ([place]) 4 mg Oral Tablets, Dose Pack - take 1 tablet by ORAL route as directed - follow package instructions; 1 packet. - Medication Reconciliation Form, Thank You Letter, Antibiotic Education, Prescription Opioid Use form. - Follow up: Private Physician; When: As needed; Reason: Recheck today's complaints, Re-evaluation by your physician. - Problem is new. - Symptoms have improved. Signatures: Dispatcher [employer] EDMS Mara Hendricks RN RN iw Nieto, Roman, MD MD rn Leal, Jahala, RN RN jl7 Corrections: (The following items were deleted from the chart) 10:46 09:27 06/07/2020 09:27 Discharged to Home. Impression: Torticollis; Cervical disc jl7 disorder with radiculopathy. Condition is Stable. Forms are Medication Reconciliation Form, Thank You Letter, Antibiotic Education, Prescription Opioid Use. Follow up: Private Physician; When: As needed; Reason: Recheck today's complaints, Re-evaluation by your physician. Problem is new. Symptoms have improved. rn
--- NOTE | 2020-06-07 09:28 | ER ---
Nurse's Notes [facility] Name: Bassam Sim Age: 75 yrs Sex: Female : 1945 Arrival Date: 06/07/2020 Time: 08:20 Bed 19 Private MD: Diagnosis: Torticollis;Cervical disc disorder with radiculopathy Presentation: 06/07 08:21 Chief complaint: Patient states: woke up three days ago with neck pain, more on left iw side, feels better when she keeps her head straight up. Coronavirus screen: At this time, the client does not indicate any symptoms associated with coronavirus-19. Ebola Screen: Patient negative for fever greater than or equal to 101.5 degrees Fahrenheit, and additional compatible Ebola Virus Disease symptoms Patient denies exposure to infectious person. Patient denies travel to an Ebola-affected area in the 21 days before illness onset. No symptoms or risks identified at this time. Initial Sepsis Screen: Does the patient meet any 2 criteria? No. Patient's initial sepsis screen is negative. Does the patient have a suspected source of infection? No. Patient's initial sepsis screen is negative. Risk Assessment: Do you want to hurt yourself or someone else? Patient reports no desire to harm self or others. Onset of symptoms was June 04, 2020. 08:21 Method Of Arrival: EMS: [facility] iw 08:21 Acuity: ADELINE 3 iw Historical: - Allergies: 08:26 No Known Allergies; iw - Home Meds: 08:29 Tramadol Oral [Active]; citalopram oral [Active]; gabapentin oral oral [Active]; iw hydroxychloroquine oral oral [Active]; donepezil oral oral [Active]; Cyclobenzaprine Oral [Active]; - PMHx: 08:26 Asthma; iw - PSHx: 08:29 L foot surgery; hip sx; back sx; iw - Immunization history:: Adult Immunizations up to date. - Social history:: Smoking status: Patient denies any tobacco usage or history of. - Family history:: not pertinent. - Hospitalizations: : No recent hospitalization is reported. Screenin:30 Abuse screen: Denies threats or abuse. Denies injuries from another. Nutritional jl7 screening: No deficits noted. Tuberculosis screening: No symptoms or risk factors identified. Fall Risk IV access (20 points). Total Owens Fall Scale indicates No Risk (0-24 pts). Assessment: 08:30 General: Appears in no apparent distress. uncomfortable, Behavior is cooperative, jl7 anxious. Pain: Complains of pain in neck Pain currently is 10 out of 10 on a pain scale. Neuro: Level of Consciousness is awake, alert, obeys commands, Oriented to person, place, time, situation. Cardiovascular: Patient's skin is warm and dry. Respiratory: Airway is patent Respiratory effort is even, unlabored, Respiratory pattern is regular, symmetrical. Derm: Skin is pink, warm \T\ dry. 09:30 Reassessment: Patient appears in no apparent distress at this time. Patient and/or jl7 family updated on plan of care and expected duration. Pain level reassessed. Patient is alert, oriented x 3, equal unlabored respirations, skin warm/dry/pink. Vital Signs: 08:21 BP 134 / 83; Pulse 84; Resp 16; Temp 98.1; Pulse Ox 100% on R/A; Weight 68.04 kg; iw Height 5 ft. 0 in. (152.40 cm); Pain 10/10; 09:30 BP 130 / 80; Pulse 81; Resp 17; Pulse Ox 100% ; jl7 08:21 Body Mass Index 29.29 (68.04 kg, 152.40 cm) iw ED Course: 08:20 Patient arrived in ED. iw 08:20 Shakeel España MD is Attending Physician. rn 08:25 Triage completed. iw 08:25 Arm band placed on. iw 08:38 Radiology exam delayed due to wants pain meds before coming to ct. jg6 08:38 Inserted saline lock: 20 gauge in left antecubital area, using aseptic technique. dh3 08:49 Gretel Roman, AMANDA is Primary Nurse. jl7 09:04 CT Head C Spine In Process Unspecified. EDMS 09:30 Patient has correct armband on for positive identification. Bed in low position. Call jl7 light in reach. Side rails up X 1. Pulse ox on. NIBP on. 10:45 No provider procedures requiring assistance completed. IV discontinued, intact, jl7 bleeding controlled, No redness/swelling at site. Pressure dressing applied. Administered Medications: 08:40 Drug: Decadron - Dexamethasone 10 mg Route: IVP; Site: left antecubital; jl7 09:00 Follow up: Response: No adverse reaction; Pain is decreased jl7 08:45 Drug: Demerol - Meperidine 12.5 mg Route: IVP; Site: left antecubital; jl7 09:00 Follow up: Response: No adverse reaction; Pain is decreased jl7 Outcome: 09:27 Discharge ordered by . amanda 10:45 Discharged to home via wheelchair, with friend. jl7 10:45 Condition: stable 10:45 Discharge instructions given to patient, Instructed on discharge instructions, follow up and referral plans. medication usage, Demonstrated understanding of instructions, follow-up care, medications, Prescriptions given X 2. 10:46 Patient left the ED. jl7 Signatures: Dispatcher [employer] Mara Garner, RN Shakeel Azar MD MD rn Leal, Jahala, RN RN jl7 Ai Hernandez [facility] Gisselle Adamg6
[2020-06-07 10:51] VITALS: TEMP 98.1; O2SAT 100
[2020-06-07 10:52] VITALS: BP 130/80
[2020-06-15] MEDS ORDERED: MAGNESIUM SULFATE 1 gm IVPB 1 GM/100 ML BAG IV ONE (13:47)
== END 2020-06-07 10:46 | disposition home or self-care (01) ==
LOC: ER 08:15
DX: M43.6 Torticollis (principal); M50.10 Cervical disc disorder with radiculopathy, unspecified cervical region; J45.909 Unspecified asthma, uncomplicated
CPT/HCPCS: 70450; 72125; 96375; 96374; 99284; J1100; J2175

== ENCOUNTER 2021-10-17 13:24 | Emergency (ER) | payer OTHER ==
--- OUTSIDE RECORDS SUMMARY | 2021-10-17 13:27 | XMS REPORT | Clinical Summary ---
:1945 Author Organization [facility] MD [facility] Address [address] [place] [address] Care Team Providers Name Role Phone Daniel Neal MD Primary Care Provider Rand Unavailable Jonathan Shah MD Unavailable Debbi Irwin MD Primary Care Provider Allergies No known active allergies Medications Medication Sig Dispensed Refills Start End Date Status Date traMADol (ULTRAM) 50 mg 50 mg 2 0 Active tablet (two) times 0 a day as needed. pravastatin (PRAVACHOL) Take 40 mg 0 Active 40 mg tablet by mouth 0 daily. donepezil (ARICEPT) 10 Take 10 mg 0 Active mg tablet by mouth at 0 bedtime. gabapentin (NEURONTIN) Take 200 mg 0 Active 100 mg capsule by mouth at 0 bedtime. alendronate (FOSAMAX) Take 70 mg 0 Active 70 mg tablet by mouth 0 every 7 days. On Mondays citalopram (CeleXA) 20 Take 20 mg 0 Active mg tablet by mouth 0 daily. sulfaSALAzine 1,000 mg 0 Active (AZULFIDINE) 500 mg twice 0 tablet daily. fluticasone Inhale 1 0 Active propionate-salmeterol puff by (ADVAIR) 250 mcg-50 mouth 2 mcg/inhalation diskus (two) times inhaler a day as needed. loratadine/pseudoephedr Take 1 0 Active ine (CLARITIN-D 24 HOUR tablet by ORAL) mouth as needed. melatonin 10 mg cap Take 1 0 Active capsule by mouth as needed. hydroxychloroquine Take 200 mg 0 08/16/19 Discontinued (PLAQUENIL) 200 mg by mouth 0 22 ( Therapy tablet twice completed) daily. diphenhydrAMINE (Sleep Take 25 mg 0 Discontinued Aid, diphenhydrAMINE,) by mouth 22 (Therapy 25 mg tablet nightly as comple hector) needed for sleep. 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 Travel 07/29/2021 Orders Only Lymphoma Gisselle Montilla, Multiple my eloma COLLETER (Primary Dx) 06/07/2021 Orders Only Hematology Alyssa Maloney NP 05/17/2021 Orders Only Lymphoma Gisselle Montilla, Smoldering myeloma COLLETER (Primary Dx) 04/21/2021 Orders Only Lymphoma and Gisselle Montilla, Myeloma COLLETER after 10/17/2020 Immunizations Name Administration Dates Next Due Pfizer SARS-CoV-2 Vaccination 03/05/2021 Surgical History Surgery Date Site/Laterality Comments BACK SURGERY 06/11/2014 - 06/10/2015 COLONOSCOPY 06/11/2014 - 06/10/2015 HYSTERECTOMY 06/11/1979 - 06/10/1980 Partial HIP ARTHROPLASTY 06/11/2016 - 06/10/2017 BONE MARROW BIOPSY W/ ASPIRATION 08/29/2019 Right Medical History Medical History Date Comments Asthma 2017 Rheumatoid arthritis 2019 Osteoporosis 2019 Arthritis 2000 Family History Medical History Relation Name Comments Diabetes Daughter Prostate cancer Father Will Skin cancer Father Will -Unknown cancer Maternal Grandfather -Unknown cancer Maternal Grandmother Diabetes Paternal Aunt Diabetes Paternal Uncle Relation Name Status Comments Daughter Alive Father Will Maternal Grandfather Maternal Grandmother Paternal Aunt Paternal Uncle Social History Tobacco Use Types Packs/Day Years Used Date Never Smoker 0 0 Smokeless Tobacco: Never Used Alcohol Use Standard Drinks/Week Comments Never 0 (1 standard drink = 0.6 oz pure alcoho l) Sex Assigned at Date Recorded Not on file Obstetrics History Last Filed Vital Signs Vital Sign Reading Time Taken Comments Blood Pressure 131/63 08/15/2021 8:43 AM [employer] Pulse 57 08/15/2021 8:43 AM [employer] Temperature 36.4 C (97.5 F) 08/15/2021 8:43 AM [employer] Respiratory Rate 18 08/15/2021 8:43 AM [employer] Oxygen Saturation 97% 08/15/2021 8:43 AM [employer] Inhaled Oxygen Concentration - - Weight 70.2 kg (154 lb 12.2 oz) 08/15/2021 8:45 AM [employer] Height - - Body Mass Index 29.6 11/03/2019 10:37 AM CDT Plan of Treatment Date Type Specialty Care Team Description 08/10/2022 Appointment Lab Wayne Leo APN [address] [place], [place] [address] (Wo rk) 08/14/2022 Office Visit Lymphoma and Myeloma Kasia Irwin MD [address] [place], [place] [address] (Wo rk) Health Maintenance Due Date Last Done Comments COVID-19 Vaccination (4 - Booster 08/05/2021 03/05/2021, , for Pfizer series) 08/07/2020 Implants Implanted Type Area Grinding Supervisor Device Shelf Model / Identifier Expiration Date Ser ial / Lot Implant-11/03/2015 Implant Right: Implanted: 11/03/2015 (Quantity not on file) Hip Screws-11/02/2014 Back Implanted: 11/02/2014 (Quantity not on file) Procedures Procedure Name Priority Date/Time Associated Comments Diagnosis .DR. CHENG PROT ELEC Routine 08/15/2021 7:55 Res ults for this PATH REVIEW AM [employer] procedure are i n the results section. .DR. PROSPER MCGUIRE PATH Routine 08/15/2021 7:55 Resu lts for this REVIEW AM [employer] procedure are i n the results section. FREE KAPPA/FREE LAMBDA Routine 08/15/2021 7:55 R esults for this RATIO AM [employer] procedure are i n the results section. FRACTIONATED BILIRUBIN Routine 08/15/2021 7:55 Smoldering mye brody Results for this AM [employer] procedure are i n the results section. TOTAL PROTEIN Routine 08/15/2021 7:55 Smoldering myeloma Resu lts for this AM [employer] procedure are i n the results section. ASPARTATE Routine 08/15/2021 7:55 Smoldering myeloma Resul ts for this AMINOTRANSFERASE AM [employer] procedure a re in the results section. ALANINE AMINOTRANSFERASE Routine 08/15/2021 7:55 Smoldering m yeloma Results for this AM [employer] procedure are i n the results section. ALKALINE PHOSPHATASE Routine 08/15/2021 7:55 Smoldering myelo ma Results for this AM [employer] procedure are i n the results section. ALBUMIN LEVEL Routine 08/15/2021 7:55 Smoldering myeloma Resu lts for this AM [employer] procedure are i n the results section. CALCIUM LEVEL TOTAL Routine 08/15/2021 7:55 Smoldering myelom a Results for this AM [employer] procedure are i n the results section. .GLOMERULAR FILTRATION Routine 08/15/2021 7:55 Smoldering mye brody Results for this RATE AM [employer] procedure are i n the results section. SERUM CREATININE Routine 08/15/2021 7:55 Smoldering myeloma R esults for this AM [employer] procedure are i n the results section. ELECTROLYTE PANEL Routine 08/15/2021 7:55 Smoldering myeloma Results for this AM [employer] procedure are i n the results section. BLOOD UREA NITROGEN Routine 08/15/2021 7:55 Smoldering myelom a Results for this AM [employer] procedure are i n the results section. GLUCOSE LEVEL Routine 08/15/2021 7:55 Smoldering myeloma Resu lts for this AM [employer] procedure are i n the results section. MANUAL DIFFERENTIAL Routine 08/15/2021 7:55 Smoldering myelom a Results for this AM [employer] procedure are i n the results section. Results CBC Routine 08/15/2021 7:55 Smoldering myeloma Resul ts for this AM [employer] procedure are i n the results section. LACTATE DEHYDROGENASE Routine 08/15/2021 7:55 Smoldering myel real Results for this AM [employer] procedure are i n the results section. BETA 2 MICROGLOBULIN Routine 08/15/2021 7:55 Smoldering myelo ma Results for this AM [employer] procedure are i n the results section. IMMUNOFIXATION Routine 08/15/2021 7:55 Smoldering myeloma Res ults for this ELECTROPHORESIS AM [employer] procedure ar e in the results section. PROTEIN ELECTROPHORESIS, Routine 08/15/2021 7:55 Smoldering m yeloma Results for this SERUM AM [employer] procedure are i n the results section. FREE LAMBDA LIGHT CHAIN Routine 08/15/2021 7:55 Smoldering my eloma Results for this AM [employer] procedure are i n the results section. FREE KAPPA LIGHT CHAIN Routine 08/15/2021 7:55 Smoldering mye brody Results for this AM [employer] procedure are i n the results section. IMMUNOGLOBULIN M SERUM Routine 08/15/2021 7:55 Smoldering mye brody Results for this AM [employer] procedure are i n the results section. IMMUNOGLOBULIN G SERUM Routine 08/15/2021 7:55 Smoldering mye brody Results for this AM [employer] procedure are i n the results section. IMMUNOGLOBULIN A SERUM Routine 08/15/2021 7:55 Smoldering mye brody Results for this AM [employer] procedure are i n the results section. URIC ACID Routine 08/15/2021 7:55 Smoldering myeloma Resul ts for this AM [employer] procedure are i n the results section. PHOSPHORUS LEVEL Routine 08/15/2021 7:55 Smoldering myeloma R esults for this AM [employer] procedure are i n the results section. MAGNESIUM LEVEL Routine 08/15/2021 7:55 Smoldering myeloma Re sults for this AM [employer] procedure are i n the results section. COMPREHENSIVE METABOLIC Routine 08/15/2021 7:55 Smoldering my eloma PANEL AM [employer] COMPLETE BLOOD COUNT W/ Routine 08/15/2021 7:55 Smoldering my eloma DIFFERENTIAL AM [employer] after 10/17/2020 Results .Serum Creatinine (08/15/2021 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) Pathologist Sig nature Creatinine 0.95 0.51 - 0.95 mg/dL [facility] Specimen Blood Performing Organization Address City/State/ZIP Code Phon e Number [facility] DIAGNOSTIC Unless otherwise noted, [place], [place] [address] CENTER all lab tests performed by: Division of Pathology and Laboratory Medicine [address] (ABNORMAL) .CBC (08/15/2021 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) Pathologist [facility] WBC 3.6 (L) 4.0 - 11.0 [facility] K/uL DIAGNOSTIC CENTER RBC 4.65 4.00 - 5.50 [facility] M/uL DIAGNOSTIC CENTER Hgb 13.9 12.0 - 16.0 [facility] gm/dL DIAGNOSTIC CENTER Hct 41.5 37.0 - 47.0 % [facility] DIAGNOSTIC [place] MCV 89 82 - 98 fL [facility] DIAGNOSTIC [place] MCH 29.9 27.0 - 31.0 [facility] pg DIAGNOSTIC CENTER MCHC 33.5 31.0 - 36.0 [facility] gm/dL DIAGNOSTIC CENTER RDW-SD 45.8 35.1 - 46.3 [facility] DIAGNOSTIC CENTER RDW-CV 14.1 12.0 - 15.5 % [facility] Platelet count 174 140 - 440 [facility] K/uL DIAGNOSTIC CENTER MPV 10.9 (H) 4.0 - 10.4 fL [facility] DIAGNOSTIC [place] INRBC 0.0 <=0.0 % [facility] Comment: DIAGNOSTIC CENTER The INRBC (instrument NRBC) value reflects the enumera tion of nucleated red blood cells contained in a 200uL samp le of whole blood analyzed by the instrument. This value may differ from the NRBC value reported in a manual differ ential, which is based on a 100 cell differential. Specimen Blood Performing Organization Address City/State/ZIP Code Phon e Number [facility] DIAGNOSTIC Unless otherwise noted, [address] CENTER all lab tests performed by: Division of Pathology and Laboratory Medicine [address] Protein Electrophoresis Path Review (08/15/2021 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) Pathologist [facility] SPE Path Interp The follow-up serum protein electrophoretic pattern shows that the M-protein peak is still present. It shows no change when compared to the previous value on 11/03/19. [facility] Comment: CANCER CENTER MD Iggy RUBIO [id number] Dictated by: MD Iggy RUBIO [id number] Dictated Date/Time: 08.25.19 6:57 AM CDT Transcribed Date/Time: 08.24.2021 6:57 AM CDT Electronically Signed By: MD Iggy [id number] o n 08.24.2021 6:57 AM C Specimen Blood Performing Organization Address [facility] Phon e Number [facility] CANCER Unless otherwise noted, [address] all lab tests performed by: Division of Pathology and Laboratory Medicine [address] SHAYLA Path Review (08/15/2021 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) SHAYLA Path Int The follow-up serum protein immunofixation electrophoretic patterns obtained with the use of antisera against IgG, IgA, IgM, bound kappa and bound lambda light chains are consistent with at least three [facility] closely-migrating IgA kappa M-protein bands. 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 Comment: MD Iggy RUBIO [id number] Dictated by: MD Iggy RUBIO Dictated Date/Time: 08.25.19 6:57 AM CDT Transcribed Date/Time: 08.24.2021 6:57 AM CDT Electronically Signed By: MD Iggy [id number] o n 08.24.2021 6:57 AM C Specimen Blood Performing Organization Address [facility] Phon e Number [facility] CANCER Unless otherwise noted, [address] all lab tests performed by: Division of Pathology and Laboratory Medicine [facility] [address] (ABNORMAL) Free [place]/Free Lambda Ratio (08/15/2021 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) Pathologist Isiah loyd FKjin/FLam RT 40.13 (H) 0.26 - 1.65 [facility] Specimen Blood Performing Organization Address City/[facility] Phon e Number [facility] CANCER Unless otherwise noted, [address] all lab tests performed by: Division of Pathology and Laboratory Medicine [facility] [place] (ABNORMAL) Glomerular Filtration Rate (08/15/2021 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) eGFR-AA 66 >=60 [facility] Comment: mL/min/1.73 DIAGNOSTIC CENTER Normal eGFR: >= 60 mL/min/1.73 m2 sq. m Note: The eGFR is calculated using the CKD-EPI equation. The eGFR declines with age. eGFR <60 mL/min/1.73 m2 is considered as "decreased". This equation should only be used for patients 18 and older. According to the National dney Foundation's Kidney Disease Outcome Quality Initiative (KDOQI) classification and 2012 Kidney Disease Improving Global Outcomes (KDIGO) Clinical Practice Guideline, the stage of CKD should be categorized based on estimated GFR. Stage Description GFR mL/min/1.73 m2 1 Normal or high GFR >=90 2 Mildly decreased GFR 60-89 3a Mildly to moderately decreased GFR 45-59 3b Moderately to severely decreased GFR 30-44 4 Severely decreased GFR 15-29 5 Kidney failure <15 eGFR-KATJA 58 (L) >=60 [facility] Comment: mL/min/1.73 DIAGNOSTIC CENTER Normal eGFR: >= 60 mL/min/1.73 m2 sq. m Note: The eGFR is calculated using the CKD-EPI equation. The eGFR declines with age. eGFR <60 mL/min/1.73 m2 is considered as "decreased". This equation should only be used for patients 18 and older. According to the National dney Foundation's Kidney Disease Outcome Quality Initiative (KDOQI) classification and 2012 Kidney Disease Improving Global Outcomes (KDIGO) Clinical Practice Guideline, the stage of CKD should be categorized based on estimated GFR. Stage Description GFR mL/min/1.73 m2 1 Normal or high GFR >=90 2 Mildly decreased GFR 60-89 3a Mildly to moderately decreased GFR 45-59 3b Moderately to severely decreased GFR 30-44 4 Severely decreased GFR 15-29 5 Kidney failure <15 Specimen Blood Performing Organization Address City/State/ZIP Code Phon e Number [facility] DIAGNOSTIC Unless otherwise noted, [address] CENTER all lab tests performed by: Division of Pathology and Laboratory Medicine [address] [place] Fractionated Bilirubin (08/15/2021 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) Bili Total 0.4 <=1.2 mg/dL [facility] Comment: DIAGNOSTIC CENTER Indocyanine Green (ICG) may cause falsely elevated bilirubin results. Total and direct bilirubin must not be measured from samples containing indocyanine green. False elevation of total ericka irubin can be seen in patients with IgG concentrations above 28 g/L. Bili Direct <0.2Comment: <=0.3 mg/dL [facility] Indocyanine Green DIAGNOSTIC CENTER (ICG) may cause falsely elevated bilirubin results. Total and direct bilirubin must not be measured from samples containing indocyanine green. Bili Indirect See NoteComment: 0.0 - 0.9 [facility] Unable to calculate mg/dL DIAGNOSTIC CENTER Indirect Bilirubin result due to some parameters are outside reportable range Specimen Blood Performing Organization Address City/[facility] Phon e Number [facility] DIAGNOSTIC Unless otherwise noted, [place] [phone] [place] all lab tests performed by: Division of Pathology and Laboratory Medicine [address] [place] Free Lambda Light Chain (08/15/2021 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) Pathologist Sig nature Free Lambda 8.89 5.71 - 26.30 mg/L [facility] Specimen Blood Performing Organization Address City/[facility] Phon e Number [facility] CANCER Unless otherwise noted, [address] all lab tests performed by: Division of Pathology and Laboratory Medicine [address] [place] (ABNORMAL) Free [place] Light Chain (08/15/2021 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) Pathologist Sig nature Free [place] 356.76 (H) 3.30 - 19.40 mg/L [facility] Specimen Blood Performing Organization Address City/[facility] Phon e Number [facility] CANCER Unless otherwise noted, [address] all lab tests performed by: Division of Pathology and Laboratory Medicine [address] [place] (ABNORMAL) Differential (08/15/2021 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) Neutrophil % 66.2 (H) 42.0 - 66.0 % [facility] Lymphocyte % 23.6 (L) 24.0 - 44.0 % [facility] Monocyte % 7.7 (H) 2.0 - 7.0 % [facility] Eosinophil % 1.4 1.0 - 4.0 % [facility] Basophil % 0.8 0.0 - 1.0 % [facility] DIAGNOSTIC [place] IGRE % 0.3Comment: IGRE 0.0 - 0.4 % [facility] % count includes DIAGNOSTIC CENTER Metamyelocytes, Myelocytes, and Promyelocytes. Neutrophil Abs 2.41 1.70 - 7.30 [facility] K/ DIAGNOSTIC CENTER Lymphocyte Abs 0.86 (L) 1.00 - 4.80 [facility] K/ DIAGNOSTIC CENTER Monocyte Abs 0.28 0.08 - 0.70 [facility] K/ DIAGNOSTIC CENTER Eosinophil Abs 0.05 0.04 - 0.40 [facility] Basophil Abs 0.03 0.00 - 0.10 [facility] IG Abs 0.01 0.00 - 0.04 [facility] Specimen Blood Performing Organization Address City/State/ZIP Code Phon e Number [facility] DIAGNOSTIC Unless otherwise noted, [place] [phone] [place] all lab tests performed by: Division of Pathology and Laboratory Medicine [address] [place] SHAYLA (08/15/2021 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) Pathologist Sig nature SHAYLA AK (x3) [facility] CANCER CENTER Specimen Blood Performing Organization Address City/State/ZIP Code Phon e Number [facility] CANCER Unless otherwise noted, [address] all lab tests performed by: Division of Pathology and Laboratory Medicine [address] [place] Uric Acid (08/15/2021 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) Pathologist Sig nature Uric Acid 5.3 2.4 - 5.7 mg/dL [facility] Specimen Blood Performing Organization Address City/State/ZIP Code Phon e Number [facility] DIAGNOSTIC Unless otherwise noted, [place] [phone] [place] all lab tests performed by: Division of Pathology and Laboratory Medicine [address] [place] BUN (08/15/2021 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) Pathologist Sig nature BUN 11 6 - 23 mg/dL [facility] DIAGNOSTIC CE NTER Specimen Blood Performing Organization Address City/State/ZIP Code Phon e Number [facility] DIAGNOSTIC Unless otherwise noted, [place] [phone] [place] all lab tests performed by: Division of Pathology and Laboratory Medicine [address] [place] ALT (08/15/2021 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) Pathologist Sig nature ALT 15 <=33 U/L [facility] DIAGNOSTIC CE NTER Specimen Blood Performing Organization Address City/State/ZIP [facility] Phon e Number [facility] DIAGNOSTIC Unless otherwise noted, [place] [phone] [place] all lab tests performed by: Division of Pathology and Laboratory Medicine [address] [place] [place] Aspartate Aminotransferase (08/15/2021 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) Pathologist Sig nature AST 21 <=32 U/L [facility] DIAGNOSTIC CE NTER Specimen Blood Performing Organization Address City/[facility] Phon e Number [facility] DIAGNOSTIC Unless otherwise noted, [place] [phone] [place] all lab tests performed by: Division of Pathology and Laboratory Medicine [address] (ABNORMAL) Serum Protein Electrophoresis (08/15/2021 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) Pathologist Sig nature TOT PROTEIN 7.1 6.4 - 8.3 gm/dL [facility] Albumin 4.0 3.6 - 5.4 gm/dL [facility] Alpha 1 Globulin 0.3 0.2 - 0.4 gm/dL [facility] Alpha 2 Globulin 0.7 0.5 - 1.0 gm/dL [facility] Beta Globulin 0.8 0.5 - 1.1 gm/dL [facility] Gamma Globulin 1.3 0.7 - 1.6 gm/dL [facility] Paraprotein1 1.0 (H) 0.0 - 0.0 gm/dL [facility] Specimen Blood Performing Organization Address City/[facility]/ZIP Code Phon e Number [facility] CANCER Unless otherwise noted, [address] all lab tests performed by: Division of Pathology and Laboratory Medicine [address] [place] Total Protein (08/15/2021 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) Pathologist Sig nature Total Protein 7.1 6.4 - 8.3 g/dL [facility] CENTER Specimen Blood Performing Organization Address City/[facility] Phon e Number [facility] DIAGNOSTIC Unless otherwise noted, [place] [phone] [place] all lab tests performed by: Division of Pathology and Laboratory Medicine [address] [place] Phosphorus Level (08/15/2021 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) Pathologist Sig nature Phosphorus 3.4 2.5 - 4.5 mg/dL [facility] CENTER Specimen Blood Performing Organization Address [facility] [facility] Phon e Number [facility] DIAGNOSTIC Unless otherwise noted, [address] all lab tests performed by: Division of Pathology and Laboratory Medicine [address] [place] Alkaline Phosphatase (08/15/2021 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[employer]) Pathologist Sig nature Alk Phos 58 35 - 104 U/L [facility]IC CE NTER Specimen Blood Performing Organization Address [facility] Phon e Number [facility] DIAGNOSTIC Unless otherwise noted, [address] all lab tests performed by: Division of Pathology and Laboratory Medicine [address] [place] Magnesium Level (08/15/2021 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[employer]) Pathologist Sig nature Magnesium 2.3 1.6 - 2.6 mg/dL [facility] Specimen Blood Performing Organization Address [facility] Phon e Number [facility] DIAGNOSTIC Unless otherwise noted, [address] all lab tests performed by: Division of Pathology and Laboratory Medicine [address] [place] LDH (08/15/2021 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[employer]) LDH 174Comment: Results 135 - 214 U/L [facility] greater than 1651 U/L [facility] may not be reliable due to matrix effect with extended dilution as it exceeds the cue worker's recommended limit. Caution should be exercised when interpreting such values and done in conjunction with clinical context. Specimen Blood Performing Organization Address [facility] Phon e Number [facility] DIAGNOSTIC Unless otherwise noted, [address] all lab tests performed by: Division of Pathology and Laboratory Medicine [address] [place] (ABNORMAL) Glucose Level (08/15/2021 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[employer]) Glucose Level 103 (H) 70 - 99 mg/dL [facility] Comment: [facility]IC [facility]ENTER Effective 01/05/16, the gluco se reference intervals have been updated based on [place] [employer] guidelines (Standards of Medical Care in Diabetes 2016. Diabetes Care 2016; 39: S13-S22). Fasting blood glucose: Normal: 70-99 mg/dL Impaired fasting glucose (in creased risk for diabetes or pre-diabetes): 100- 125 mg/dL Diabetes mellitus: >/=126 mg/dL Random blood glucose: Normal: 70-199 mg/dL Note: Random glucose >100 mg/dL is assoc iated with increased risk for diabetes Specimen Blood Performing Organization Address [facility]/ZIP [facility] [place] Number [facility] DI[facility]STIC Unless otherwise noted, [address] [place] all lab tests performed by: Division of Pathology and Laboratory Medicine [address] (ABNORMAL) IgA (08/15/2021 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[employer]) Pathologist Sig nature IgA 1,190 (H) 85 - 499 mg/dL [facility] ER Specimen Blood Performing Organization Address [facility] Phon e Number [facility] CANCER Unless otherwise noted, [place] [id number] [place] all lab tests performed by: Division of Pathology and Laboratory Medicine [address] (ABNORMAL) IgM (08/15/2021 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[employer]) Pathologist Sig nature IgM 15 (L) 35 - 242 mg/dL [facility] ER Specimen Blood Performing Organization Address [facility] Phon e Number [facility] CANCER Unless otherwise noted, [address] [place] all lab tests performed by: Division of Pathology and Laboratory Medicine [address] (ABNORMAL) IgG (08/15/2021 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[employer]) Pathologist Sig nature IgG 285 (L) 610 - 1,616 mg/dL [facility] Specimen Blood Performing Organization Address [facility] Phon e Number [facility] CANCER Unless otherwise noted, [place] [id number] [place] all lab tests performed by: Division of Pathology and Laboratory Medicine [address] [place] Calcium Level (08/15/2021 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[employer]) Pathologist Sig nature Calcium Lvl 9.8 8.4 - 10.2 mg/dL [facility] DI[facility]NOSTI [facility] CENTER Specimen Blood Performing Organization Address [facility] Phon e Number [facility] DIAGNOSTIC Unless otherwise noted, [address] [place] all lab tests performed by: Division of Pathology and Laboratory Medicine [address] [place] Beta 2 Microglobulin (08/15/2021 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[employer]) Pathologist Sig nature Beta2 Microglob 2.3 0.8 - 2.3 mg/L [facility]ER [place] Specimen Blood Performing Organization Address City/State/ZIP Code Phon e Number [facility] CANCER Unless otherwise noted, [id number] [address] all lab tests performed by: Division of Pathology and Laboratory Medicine [address] Albumin Level (08/15/2021 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[employer]) Pathologist Sig nature Albumin Lvl 4.3 3.5 - 5.2 gm/dL [facility] Specimen Blood Performing Organization Address City/State/ZIP Code Phon e Number [facility] DIAG[facility]STIC Unless otherwise noted, [address] all lab tests performed by: Division of Pathology and Laboratory Medicine [address] [place] Electrolyte Panel (08/15/2021 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[employer]) Pathologist Sig nature Sodium Lvl 142 136 - 145 mEq/L [facility] Potassium Lvl 4.1 3.5 - 5.1 mEq/L [facility] CENTER Chloride 106 98 - 107 mEq/L [facility] CO2 26 22 - 29 mEq/L [facility] Anion Gap 10 4 - 14 mEq/L [facility] Specimen Blood Performing Organization Address City/[facility]/ZIP Code Phon e Number [facility] DIAGNOSTIC Unless otherwise noted, [address] [place] all lab tests performed by: Division of Pathology and Laboratory Medicine [address] after 10/17/2020 Insurance Payer Benefit Plan / Subscriber ID Effective Dates Phone Addre ss Type Group HUMANA HUMANA CHOICE [id number] 2021-Presen [address] [address] Medicare [place] [address] Care Teams Engineer Exhauster Relationship Specialty Start Date End Date Magdalena Neal MD PCP - General Lymphoma and Myeloma 08/06/19 04/20/[address] [place] [address] [phone] Stephany Gordillo PCP - External Follow Up Hematology and 11/03/[address] [place] [address] Mazin Shah MD PCP - External Primary Internal Medicine 11/03/[address] [place] [address] [place] [address] Heather Irwin MD PCP - General Lymphoma and Myeloma 04/21/[address] [place] [address] [phone]
--- OUTSIDE RECORDS SUMMARY | 2021-10-17 13:28 | XMS REPORT | Continuity of Care Document ---
:1945 Author Organization [facility] t Address [address] [place] [address] Care Team Providers Name Role Phone [phone] Primary Care Physician Unavailable Sean Attending Clinician Unavailable Debbi Irwin MD Attending Clinician Debbi IRWIN Attending Clinician Unavailable Jonathan Montilla APN Attending Clinician Haider MORGAN Attending Clinician Physician, Primary or Family Admitting Clinician Unavailabl e Payers Payer Name Policy Type Policy Effective Date Expiration Date Sour ce Number HUMANA [id number] 2021 MD Torres MEDICAREHUMANA 00:00:00 CHOICE MEDICARE [id number] 2021 -Present[address] [place] [id number] Problems This patient has no known problems. Allergies, Adverse Reactions, Alerts Allergy Allergy Status Severity Reaction(s) Onset Inactive Treating Comm ents Source Name Type Date Date Clinician No Known DA Active [facility] Allergie 00:00: Benito s 00 [facility] No Known DA Active U [facility] 4- Clear Allergie 00:00: Benito s 00 [facility] No Known DA Active [facility]- [place] [facility] Family History Family Member Diagnosis Comments Start Date Stop Date Source Natural father Prostate cancer MD Megan baez Natural father Skin cancer MD Iverson on Maternal grandfather -Unknown cancer MD Torres Maternal grandmother -Unknown cancer MD Torres Paternal aunt Diabetes MD Torres Paternal uncle Diabetes MD Harper hemphill Natural daughter Diabetes Sony son Social History Social Habit Start Date Stop Date Quantity Comments Source Tobacco use and 2019-11-03 2019-11-03 Smokeless tobacco MD Torres exposure 00:00:00 00:00:00 non-user Alcohol intake 2019-11-03 2019-11-03 Lifetime MD Harper hemphill 00:00:00 00:00:00 non-drinker (finding) Sex [birth year] MD Iverson on 00:00:00 00:00:00 Smoking Status Start Date Stop Date Source Never smoked tobacco MD Torres Medications Ordered Filled Start Stop Current Ordering Indication Dosage Frequency Signature Comments Components Source Medication Medication Date Date Medication? Clinician (SIG) Name Name fluticasone Yes 1{puff} Inhale 1 MD propionate- 3-07 puff by Sony so salmeterol 08:49: mouth 2 n (ADVAIR) 26 (two) 250 mcg-50 times a mcg/inhalat day as ion diskus needed. inhaler loratadine/ Yes 1{tbl} Take 1 MD pseudoephed 3-07 tablet by And erso rine 08:49: mouth as n (CLARITIN-D 26 needed. 24 HOUR ORAL) melatonin Yes 1{capsu Take 1 MD 10 mg cap 3-07 le} capsule by Dane rso 08:49: mouth as n 26 needed. diphenhydrA 25mg Take 25 mg MD MINE (Sleep 3-07 03-07 by mouth And erso Aid, 08:49: 00:00 nightly as n diphenhydrA 26 :00 needed for MINE,) 25 sleep. mg tablet donepezil Yes 10mg Take 10 mg MD (ARICEPT) 5-15 by mouth Kishor o 10 mg 00:00: at n tablet 00 bedtime. traMADol Yes 50mg 50 mg 2 MD (ULTRAM) 50 5-12 (two) Anderso mg tablet 00:00: times a n 00 day as needed. gabapentin 2020-0 Yes 200mg Take 200 MD (NEURONTIN) 5-08 mg by Anderso 100 mg 00:00: mouth at n capsule 00 bedtime. hydroxychlo 2020-0 200mg Take 200 MD roquine 5-08 03-07 mg by Anderso (PLAQUENIL) 00:00: 00:00 mouth n 200 mg 00 :00 twice tablet daily. alendronate 2020-0 Yes 70mg Take 70 mg MD (FOSAMAX) 5-05 by mouth Kishor o 70 mg 00:00: every 7 n tablet 00 days. On Mondays citalopram 2020-0 Yes 20mg Take 20 mg M D (CeleXA) 20 4- by mouth Dane rso mg tablet 00:00: daily. n 00 sulfaSALAzi 2020-0 Yes 1000mg 1,000 mg MD ne - twice Anderso (AZULFIDINE 00:00: daily. n ) 500 mg 00 tablet pravastatin 2019-0 Yes 40mg Take 40 mg MD (PRAVACHOL) 3-19 by mouth Dane rso 40 mg 00:00: daily. n tablet 00 Immunizations Ordered Immunization Filled Immunization Date Status Commen ts Source Name Name [employer] SARS-CoV-2 2021-03-05 Completed MD Dane hardy Vaccination 00:00:00 Vital Signs Vital Name Observation Time Observation Value Comments Source Body weight 2021-08-15 14:45:00 70.2 kg MD Cardoza garfield BMI 2021-08-15 14:45:00 29.60 kg/m2 MD Sony merrill Systolic blood pressure 2021-08-15 14:43:30 131 mm[Hg] MD Torres Diastolic blood pressure 2021-08-15 14:43:30 63 mm[Hg] MD Torres Heart rate 2021-08-15 14:43:30 57 /min MD Cardoza garfield Body temperature 2021-08-15 14:43:30 36.39 Bushra MD Keira carpenter Respiratory rate 2021-08-15 14:43:30 18 /min MD Keira carpenter Oxygen saturation in 2021-08-15 14:43:30 97 /min MD Torres Arterial blood by Pulse oximetry Procedures Procedure Date / Time Performing Clinician Source Performed ALBUMIN LEVEL 2021-08-15 13:55:00 Gisselle Montilla MD ALKALINE PHOSPHATASE 2021-08-15 13:55:00 Gisselle Montilla MD rsreji ALANINE AMINOTRANSFERASE 2021-08-15 13:55:00 Gisselle Montilla MD ASPARTATE AMINOTRANSFERASE 2021-08-15 13:55:00 Gisselle Montilla TOTAL PROTEIN 2021-08-15 13:55:00 Gisselle Montilla MD FRACTIONATED BILIRUBIN 2021-08-15 13:55:00 Gisselle Montilla MD An derson FREE KAPPA/FREE LAMBDA 2021-08-15 13:55:00 Gisselle Montilla MD derson RATIO .DR. CHENG SHAYLA PATH REVIEW 2021-08-15 13:55:00 Gisselle Montilla .DR. CHENG PROT ELEC PATH 2021-08-15 13:55:00 Gisselle Montilla MD REVIEW COMPLETE BLOOD COUNT W/ 2021-08-15 13:55:00 Gisselle Montilla MDrson DIFFERENTIAL COMPREHENSIVE METABOLIC 2021-08-15 13:55:00 Gisselle Montilla MD nderson PANEL MAGNESIUM LEVEL 2021-08-15 13:55:00 Gisselle Montilla MD PHOSPHORUS LEVEL 2021-08-15 13:55:00 Gisselle Montilla MD URIC ACID 2021-08-15 13:55:00 Gisselle Montilla MD IMMUNOGLOBULIN A SERUM 2021-08-15 13:55:00 Gisselle Montilla MD An derson IMMUNOGLOBULIN G SERUM 2021-08-15 13:55:00 Gisselle Montilla MD An derson IMMUNOGLOBULIN M SERUM 2021-08-15 13:55:00 Gisselle Montilla MD An derson FREE KAPPA LIGHT CHAIN 2021-08-15 13:55:00 Gisselle Montilla MD An derson FREE LAMBDA LIGHT CHAIN 2021-08-15 13:55:00 Gisselle Montilla MD nderson PROTEIN ELECTROPHORESIS, 2021-08-15 13:55:00 Gisselle Montilla MD SERUM IMMUNOFIXATION 2021-08-15 13:55:00 Gisselle Montilla MD ELECTROPHORESIS BETA 2 MICROGLOBULIN 2021-08-15 13:55:00 Montilla, Gisselle C MD Dane rson LACTATE DEHYDROGENASE 2021-08-15 13:55:00 Gisselle Montilla MD And erson Results CBC 2021-08-15 13:55:00 Gisselle Montilla MD MANUAL DIFFERENTIAL 2021-08-15 13:55:00 Gisselle Montilla MD Sony son GLUCOSE LEVEL 2021-08-15 13:55:00 Gisselle Montilla MD BLOOD UREA NITROGEN 2021-08-15 13:55:00 Gisselle Montilla MD Sony son ELECTROLYTE PANEL 2021-08-15 13:55:00 Gisselle Montilla MD SERUM CREATININE 2021-08-15 13:55:00 Gisselle Montilla MD .GLOMERULAR FILTRATION 2021-08-15 13:55:00 Gisselle Montilla MD derson RATE CALCIUM LEVEL TOTAL 2021-08-15 13:55:00 Gisselle Montilla MD Sony son [id number] 2020-10-18 00:00:00 MATVA.01 [facility] Plan of Care Planned Activity Planned Date Details Comments Source Future Scheduled Test 2021-08-05 00:00:00 COVID-19 Vaccination (4 MD Torres - Booster for Pfizer series) [code = COVID-19 Vaccination (4 - Booster for Pfizer series)] Encounters Start End Encounter Admission Attending Care Care Encounter Source Date/Time Date/Time Type Type Clinicians Facility Department ID 2020-10-18 Inpatient EM PNENY EstradaVASILE DAYS [id number] [facility] 12:10:00 Ian [id number] [facility] 2021-08-15 2021-08-15 Outpatient STEWART IRWIN MDA MDA [id number] 07:15:00 23:59:00 DEBRA hmephill 2021-08-15 2021-08-15 Outpatient STEWART IRWIN MDA MDA [id number] 08:03:33 09:39:14 DEBRA hemphlil 2020-10-01 2020-10-01 Outpatient EstradaBAYLEE LABO [id number] [id number] [facility] 18:12:00 18:12:00 Ian [id number] [facility] 2020-10-01 2020-10-01 Outpatient JOHN Dave 3DAY [id number] [facility] 09:00:00 09:00:00 Ian [id number] [facility] 2019-06-19 2019-06-19 Outpatient [facility] MED 7500 [facility] 08:42:00 08:42:00 Results Test Description Test Time Test Comments Results Result Sourc e Comments SHAYLA Path Review 2021-08-09 SHAYLA Path IntThe MD Keira carpenter 6 follow-up serum 11:57:58 protein immunofixation electrophoretic patterns obtained with the use of antisera against IgG, IgA, IgM, bound kappa and bound lambda light chains are consistent with at least three closely-migrating IgA kappa M-protein bands. 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 Comment: PABLO CHENG MD - [id number] by: PABLO CHENG MD - [id number] Date/Time: 08.24.2021 6:57 AM CDT Transcribed Date/Time: 08.24.2021 6:57 AM CDTElectronically Signed By: PABLO CHENG MD - [id number] on 08.24.2021 6:[address] [facility] SHAYLA 2021-08-24 11:57:57 Test Item Value Reference Range Interpretation Comme [facility] SHAYLA (test code = 5948) AK (x3) MD TorresProtein Electrophoresis Path [id number] 11:57:56 Test Item Value Reference Range Interpretation Comments SPE Path The follow-up serum Interp (test protein code = 7285) electrophoretic BE VERLY pattern shows that MD PROSPER - the M-protein peak is 36176H ictated by: still present. It PABLO STEPHENS MD - shows no change when 24336So ctated compared to the Date/Time: 0 3.16.2022 previous value on 6:57 AM CD T 11/03/19. Transcribed Date/Time: 08.09 6:57 AM CDTElectronical ly Signed By: NELLA CHENG MD - [id number] 4 on 08.24.2021 6:57 AM Jonathan Asif Protein [id number] 11:57:55 Test Item Value Reference Range Interpretation Comments TOT PROTEIN (test code = 7.1 See_Comment [A utomated message] 8545) The system [facility] generated this result transmitted ref erence range: 6.4 - 8. 3 gm/dL. The refe rence range was not u sed to interpret this result as normal/abnor mal. Albumin (test code = 4.0 See_Comment [Autom ated message] 1751-7) The system [facility] generated this result transmitted ref erence range: 3.6 - 5. 4 gm/dL. The refe rence range was not u sed to interpret this result as normal/abnor mal. Alpha 1 Globulin (test 0.3 See_Comment [Aut omated message] code = 4774) The system [facility] generated this result transmitted ref erence range: 0.2 - 0. 4 gm/dL. The refe rence range was not u sed to interpret this result as normal/abnor mal. Alpha 2 Globulin (test 0.7 See_Comment [Aut omated message] code = 4777) The system [facility] generated this result transmitted ref erence range: 0.5 - 1. 0 gm/dL. The refe rence range was not u sed to interpret this result as normal/abnor mal. Beta Globulin (test code 0.8 See_Comment [A utomated message] = 5078) The system [facility] generated this result transmitted ref erence range: 0.5 - 1. 1 gm/dL. The refe rence range was not u sed to interpret this result as normal/abnor mal. Gamma Globulin (test 1.3 See_Comment [Autom ated message] code = 2874-6) The system [facility] generated this result transmitted ref erence range: 0.7 - 1. 6 gm/dL. The refe rence range was not u sed to interpret this result as normal/abnor mal. Paraprotein1 (test code 1.0 See_Comment H [Au tomated message] = 5386) The system [employer] generated this result transmitted ref erence range: 0.0 - 0. 0 gm/dL. The refe rence range was not u sed to interpret this result as normal/abnor mal. Lab Interpretation (test Abnormal code = 72933-7) MD Nayak Morland/Free Lambda [id number] 18:03:16 Test Item Value Reference Range Interpretation Comments FKap/FLam RT (test code = 5566) 40.13 0.26-1.65 H Lab Interpretation (test code = Abnormal 05406-4) MD Nayak Lambda Light [id number] 18:03:15 Test Item Value Reference Range Interpretation Comments Free Lambda (test code = 5630) 8.89 mg/L 5.71-26.30 MD Nayak Morland Light [id number] 18:03:14 Test Item Value Reference Range Interpretation Comments Free Morland (test code = 5629) 356.76 mg/L 3.30-19.40 H Lab Interpretation (test code = Abnormal 79168-2) MD TorresBeta 2 Svfpureraumbu3181-45-08 18:03:13 Test Item Value Reference Range Interpretation Comments Beta2 Microglob (test code = 5090) 2.3 mg/L 0.8-2.3 MD TorresSqrlwiwkZyQ7239-16-03 18:03:12 Test Item Value Reference Range Interpretation Comments IgM (test code = 6023) 15 mg/dL 35-242 L Lab Interpretation (test code = Abnormal 46942-3) MD TorresCbdoilfeXuE7370-87-28 18:03:11 Test Item Value Reference Range Interpretation Comments IgG (test code = 6001) 285 mg/dL 610-1616 L Lab Interpretation (test code = Abnormal 46666-5) MD TorresGohhlkvwVwK7699-24-23 18:03:10 Test Item Value Reference Range Interpretation Comments IgA (test code = 5992) 1190 mg/dL 85-499 H Lab Interpretation (test code = Abnormal 60023-4) MD TorresFractionated Klalmkkyv3506-59-30 14:33:56 Test Item Value Reference Range Interpretation Comments Bili Total (test 0.4 mg/dL See_Comment Indocyanine Green (ICG) code = 1975-2) may cause fal sely elevated biliru bin results. Total and direct bilirubin must not be measured from s amples containing indo cyanine green. False el evation of total bilirubin can be seen in patient s with IgG concentrations above 28 g/L. [Automate d message] The system whic h generated this result transmitted ref erence range: <=1.2. T he reference range was not used to interpr et this result as normal/abnormal . Bili Direct (test <0.2 See_Comment Indocyanin e Green (ICG) code = 1967-12) may cause fal sely elevated biliru bin results. Total and direct bilirubin must not be measured from s amples containing indo cyanine green. [Automat ed message] The sy stem which generated this result transmitted ref erence range: <=0.3 mg /dL. The reference range was not used to interpr et this result as normal/abnormal . Bili Indirect (test See Note 0.0-0.9 Unable t o calculate code = 1970-06) Indirect Bili abel result due to some par ameters are outside rep ortable range MD TorresUric [id number] 14:33:55 Test Item Value Reference Range Interpretation Comments Uric Acid (test code = 3084-1) 5.3 mg/dL 2.4-5.7 MD TorresTotal [id number] 14:33:54 Test Item Value Reference Range Interpretation Comments Total Protein (test code = 2885-2) 7.1 g/dL 6.4-8.3 MD TorresPhosphorus [id number] 14:33:53 Test Item Value Reference Range Interpretation Comments Phosphorus (test code = 2777-1) 3.4 mg/dL 2.5-4.5 MD TorresCalcium [id number] 14:33:52 Test Item Value Reference Range Interpretation Comments Calcium Lvl (test code = 41348-6) 9.8 mg/dL 8.4-10.2 MD [id number] 14:33:50 Test Item Value Reference Range Interpretation Comments ALT (test code = 15 U/L See_Comment [Automated message] The 1741-11) system which ge nerated this result transmit hector reference range : <=33. The reference range was not used to interpr et this result as antionette l/abnormal. MD TorresXbxcyzpjLXC6460-02-87 14:33:49 Test Item Value Reference Range Interpretation Comments BUN (test code = 3094-0) 11 mg/dL 6-23 MD TorresGlucose [id number] 14:33:48 Test Item Value Reference Range Interpretation Comments Glucose Level (test code 103 mg/dL 70-99 H Eff ective 01/05/16, = 2345-7) the glucose reference inter vals have been updat ed based on Americ an Diabetes Associ ation guidelines (Standards of Medical Care in Diabetes 2016. Diabetes Care 2 016; 39: S13-S22).Fa sting blood glucose:Normal: 70-99 mg/dLImpa ired fasting glucose (increased risk for diabetes or pre-diabetes): 100-125 mg/dLDiabetes mellitus: >/=1 26 mg/dL Random bl ood glucose:Normal: 70-199 mg/dLNot e: Random glucose >100 mg/dL is associ ated with increased risk for diabetes Lab Interpretation (test Abnormal code = 57546-9) MD TorresGlomerular Filtration [id number] 14:33:46 Test Item Value Reference Range Interpretation Comments eGFR-AA (test code = 66 See_Comment Normal eGFR: >= 60 77928-7) mL/min/1.73 m2N ote: The eGFR is sonja culated using the CKD-E PI equation. The e GFR declines with a ge. eGFR <60 mL/min /1.73 m2 is considere d as "decreased". Th is equation should only be used for pat ients 18 and older. According to th e National Kidney Foundation's Ki dney Disease Outcome Quality Initiat nai (KDOQI) classif ication and 2012 Kidney Disease Improvi ng Global Outcomes (KDIGO) Clinica l Practice Guidel ine, the stage of CK D should be categ orized based on estima hector GFR. Stage Desc ription GFR mL/mi n/1.73 m21 Normal or h igh GFR >=902 Mildly decreased GFR 60-893a M ildly to moderately decreased GFR 45-593b Moderat ky to severely decrea sed GFR 30-444 Vannesa rely decreased GFR 15-295 Kidney f ailure <15 [Auto mated message] The sy stem which generated this result transmit hector reference range : >=60 mL/min/1.73 sq. m. The reference range was not used to int erpret this result as normal/abnormal . eGFR-KATJA (test code = 58 See_Comment L Normal eGFR: >= 60 37795-0) mL/min/1.73 m2N ote: The eGFR is sonja culated using the CKD-E PI equation. The e GFR declines with a ge. eGFR <60 mL/min /1.73 m2 is considere d as "decreased". Th is equation should only be used for pat ients 18 and older. According to th e National Kidney Foundation's Ki dney Disease Outcome Quality Initiat nai (KDOQI) classif ication and 2011 Kidney Disease Improvi ng Global Outcomes (KDIGO) Clinica l Practice Guidel ine, the stage of CK D should be categ orized based on estima hector GFR. Stage Desc ription GFR mL/mi n/1.73 m21 Normal or h igh GFR >=902 Mildly decreased GFR 60-893a M ildly to moderately decreased GFR 45-593b Moderat ky to severely decrea sed GFR 30-444 Vannesa rely decreased GFR 15-295 Kidney f ailure <15 [Auto mated message] The sy stem which generated this result transmit hector reference range : >=60 mL/min/1.73 sq. m. The reference range was not used to int erpret this result as normal/abnormal . Lab Interpretation Abnormal (test code = 96765-2) MD TorresMagnesium [id number] 14:33:45 Test Item Value Reference Range Interpretation Comments Magnesium (test code = 70850-9) 2.3 mg/dL 1.6-2.6 MD TorresZrdqohatPJS7549-96-22 14:33:44 Test Item Value Reference Range Interpretation Comments LDH (test code = 174 U/L 135-214 Results gre ater than 1651 89986-3) U/L may not be reliable due to matrix effec t with extended diluti on as it exceeds the man ufacturer's recommended jasso it. Caution should be exerc ised when interpreting ramon ch values and done in con junction with clinical c ontext. MD TorresAlkaline Ncvotpjnzyv5114-91-11 14:33:43 Test Item Value Reference Range Interpretation Comments Alk Phos (test code = 6768-6) 58 U/L 35-104 MD TorresAlbumin [id number] 14:33:42 Test Item Value Reference Range Interpretation Comments Albumin Lvl (test code 4.3 See_Comment [Aut omated message] The = 2886) system which ge nerated this result tra nsmitted reference range : 3.5 - 5.2 gm/dL. The refe rence range was not used to interpret this result as normal/abnormal . MD TorresAspartate Ccimjkxccpvafgac5026-72-00 14:33:41 Test Item Value Reference Range Interpretation Comments AST (test code = 21 U/L See_Comment [Automated message] The 1920-01) system which ge nerated this result transmit hector reference range : <=32. The reference range was not used to interpr et this result as antionette l/abnormal. MD TorresElectrolyte [id number] 14:33:40 Test Item Value Reference Range Interpretation Comments Sodium Lvl (test code = 142 See_Comment [Au tomated message] The 2950-07) system which ge nerated this result tra nsmitted reference range : 136 - 145 mEq/L. The reference range was not u sed to interpret this result as normal/abnormal . Potassium Lvl (test 4.1 See_Comment [Automa hector message] The code = 2823-3) system which generated this result tra nsmitted reference range : 3.5 - 5.1 mEq/L. The reference range was not u sed to interpret this result as normal/abnormal . Chloride (test code = 106 See_Comment [Auto mated message] The ) system which ge nerated this result tra nsmitted reference range : 98 - 107 mEq/L. The refe rence range was not u sed to interpret this result as normal/abnormal . CO2 (test code = 26 See_Comment [Automated message] The 2028-02) system which ge nerated this result tra nsmitted reference range : 22 - 29 mEq/L. The refe rence range was not u sed to interpret this result as normal/abnormal . Anion Gap (test code = 10 See_Comment [Aut omated message] The ) system which ge nerated this result tra nsmitted reference range : 4 - 14 mEq/L. The refe rence range was not u sed to interpret this result as normal/abnormal . MD Torres.Serum Tqywbaqydc4983-16-67 14:33:39 Test Item Value Reference Range Interpretation Comments Creatinine (test code = 2160-0) 0.95 mg/dL 0.51-0.95 MD TorresXeycdypyUaegxbsarzdf0346-91-20 14:07:45 Test Item Value Reference Range Interpretation Comments Neutrophil % (test code = 66.2 % 42.0-66.0 H 770-8) Lymphocyte % (test code = 23.6 % 24.0-44.0 L 736-9) Monocyte % (test code = 7.7 % 2.0-7.0 H 5905-5) Eosinophil % (test code = 1.4 % 1.0-4.0 713-8) Basophil % (test code = 0.8 % 0.0-1.0 30178-6) IGRE % (test code = 0.3 % 0.0-0.4 IGRE % c ount 69819-7) includes Metamyelocytes, Myelocytes, and Promyelocytes. Neutrophil Abs (test code 2.41 K/uL 1.70-7.30 = 751-8) Lymphocyte Abs (test code 0.86 K/uL 1.00-4.80 L = 731-0) Monocyte Abs (test code = 0.28 K/uL 0.08-0.70 742-7) Eosinophil Abs (test code 0.05 K/uL 0.04-0.40 = 711-2) Basophil Abs (test code = 0.03 K/uL 0.00-0.10 704-7) IG Abs (test code = 0.01 K/uL 0.00-0.04 80845-8) Lab Interpretation (test Abnormal code = 85749-3) MD Torres.[id number] 14:07:38 Test Item Value Reference Range Interpretation Comments WBC (test code = 3.6 K/uL 4.0-11.0 L 6690-2) RBC (test code = 789-8) 4.65 See_Comment [Au tomated message] The system [employer] generated this result transmitted ref erence range: 4.00 - 5 .50 M/uL. The refer ence range was not u sed to interpret this result as normal/abnor mal. Hgb (test code = 718-7) 13.9 See_Comment [Au tomated message] The system [employer] generated this result transmitted ref erence range: 12.0 - 1 6.0 gm/dL. The refe rence range was not u sed to interpret this result as normal/abnor mal. Hct (test code = 41.5 % 37.0-47.0 4544-3) MCV (test code = 787-2) 89 fL 82-98 MCH (test code = 785-6) 29.9 pg 27.0-31.0 MCHC (test code = 33.5 See_Comment [Automate d message] 786-4) The system [employer] generated this result transmitted ref erence range: 31.0 - 3 6.0 gm/dL. The refe rence range was not u sed to interpret this result as normal/abnor mal. RDW-SD (test code = 45.8 fL 35.1-46.3 29935-0) RDW-CV (test code = 14.1 % 12.0-15.5 788-0) Platelet count (test 174 K/uL 140-440 code = 777-3) MPV (test code = 10.9 fL 4.0-10.4 H 30430-9) INRBC (test code = 0.0 % See_Comment The INRBC (instrument 27214-9) NRBC) value ref lects the enumeration of nucleated red b lood cells contained in a 200uL sampleof whole blood analyzed by the instrument. Thi s value maydiffer from the NRBC value repo rted in a manual differential,wh ich is based on a 100 cell differential. [Automated mess age] The system [employer] generated this result transmitted ref erence range: <=0.0. T he reference range was not used to int erpret this result as normal/abnormal . Lab Interpretation Abnormal (test code = 11760-8) MD TorresHGB [id number] 06:11:00 Test Item Value Reference Range Interpretation Comments HEMOGLOBIN (test code = HGB) 10.0 g/dL 12-16 L HEMATOCRIT (test code = HCT) 30.7 % 37-47 L SPECIMEN COMMENT: POD #1- XR PELVIS 1/2 [id number] 12:13:00 [facility] 1945 Sex: F Patient Name: DAIN ODOM Unit No: [id number] EXAMS: CPT CODE: [id number] XR PELVIS 1/2 VIEWS 24343 AP VIEW OF THE PELVIS. COMMENT: In progress total left hip arthroplasty. AP view the pelvis COMMENT: COMPARISON: No prior exams available. Completed total left hip arthroplasty. Prosthesis appears to be in good position. at 1213 Reported and signed by: Chandrika Hou MD CC: Ian Estrada MD Technologist: BAKARI NASH RT(R) Transcribed D/ (1213) tJASONGVG [facility] NAME: DAIN ODOM [address] [place] [address] PHYS: MATVA.[email or web address] - Ian Estrada : 1945 AGE: 75 SEX: F [place], [place] [address] LOC: Y.317 APHONE #: [phone] EXAM DATE: 10/18/2020 STATUS: ADM IN FAX #: [phone] RAD #: D/C DT PAGE 1 Signed Report Patient Name: DAIN ODOM Unit No: [id number] EXAMS: CPT CODE: [id number] XR PELVIS 1/2 VIEWS 10592 <Continued> Orig Print D/T: S: 10/18/2020 (1211) [facility] NAME: DAIN ODOM [address] [facility] PHYS: MATVA. - Ian Estrada : 1945 AGE: 75 SEX: F [place], [place] [address] LOC: Y.317 A PHONE #: [phone] EXAM DATE: 10/18/2020 STATUS: ADM IN FAX #: [phone] RAD #: D/C DT PAGE 2 Signed Report- XR PELVIS 1/2 [id number] 12:13:00 [facility] 1945 Sex: F Patient Name: DAIN ODOM Unit No: [id number] EXAMS: CPT CODE: [id number] XR PELVIS 1/2 VIEWS 45105 AP VIEW OF THE PELVIS. COMMENT: In progress total left hip arthroplasty. AP view the pelvis COMMENT: COMPARISON: No prior exams available. Completed total left hip arthroplasty. Prosthesis appears to be in good position. at 1213 Reported and signed by: Chandrika Hou MD CC: Ian Estrada MD Technologist: SCOTTIE METZGER (RT.R) Transcribed D/ (1213) t.GVG [facility] NAME: DAIN ODOM [address] [facility] PHYS: [email or web address] - Ian Estrada : 1945 AGE: 75 SEX: F [place], [place] [address] LOC: Y.317 APHONE #: [phone] EXAM DATE: 10/18/2020 STATUS: ADM IN FAX #: [phone] RAD #: D/C DT PAGE 1 Signed Report Patient Name: DAIN ODOM Unit No: [id number] EXAMS: CPT CODE: [id number] XR PELVIS 1/2 VIEWS [id number] <Continued> Orig Print D/T: S: 10/18/2020 (1216) [facility] NAME: DAIN ODOM [address] [facility] PHYS: [email or web address] - Ian Estrada : 1945 AGE: 75 SEX: F [place], [place] [address] LOC: Y.317 A PHONE #: [phone] EXAM DATE: 10/18/2020 STATUS: ADM IN FAX #: [phone] RAD #: D/C DT PAGE 2 Signed ReportCOMPREHENSIVE METABOLIC [id number] 16:05:00 Test Item Value Reference Range Interpretation Comments SODIUM (test code = 141 mmol/L 136-145 N NA) POTASSIUM (test code = 4.8 mmol/L 3.5-5.1 N K) CHLORIDE (test code = 102.0 mmol/L 98-107 N CL) CARBON DIOXIDE (test 28.1 mmol/L 21-32 N code = CO2) GLUCOSE (test code = 83 mg/dL 70-110 N GLU) BLOOD UREA NITROGEN 14 mg/dL 7-18 N (test code = BUN) GLOMERULAR FILTRATION 64.0 >60 Unit o f measure: RATE (test code = GFR) mL/mi n/1.73 [id number] Range:Healthy Adults >90 mL/min/1.73 m2 For Chronic Kidney Disease: St age II Mild Decrease in GFR 60-90 St age III Moderate Decrease in GFR 30-59 Stage IV Severe Decre ase in GFR 15- 29 Stage V Kidney Failure <15 CREATININE (test code 0.86 mg/dL 0.55-1.30 N = CREAT) TOTAL PROTEIN (test 7.5 g/dL 6.4-8.2 N code = PROT) ALBUMIN (test code = 3.8 g/dL 3.4-5.0 N ALB) GLOBULIN (test code = 3.7 g/dL 2.2-4.2 N GLOB) ALBUMIN/GLOBULIN RATIO 1.0 0.7-2.0 N (test code = A/G) CALCIUM (test code = 9.6 mg/dL 8.2-10.1 N CA) BILIRUBIN TOTAL (test 0.50 mg/dL 0.2-1.00 N code = BILT) SGOT/AST (test code = 19.0 U/L 15-37 N AST) SGPT/ALT (test code = 31.0 U/L 12-78 N Please note new ALT) normal range. ALKALINE PHOSPHATASE 67 U/L 46-116 N TOTAL (test code = ALKP) PROTHROMBIN [id number] 14:34:00 Test Item Value Reference Range Interpretation Comments PROTHROMBIN TIME 11.6 secs 10.1-12.5 N PATIENT (test code = PTP) INTERNATIONAL NORMAL 1.02 <2.0 RECOMME NDED THERAPEUTIC RATIO (test code = RANGE FOR ORAL INR) ANTICOAGULANTTR EATMENT: CONDI TION INRProphylaxis of venous thrombos is in 2.0 - 3.0 high-risk medic al or surgical patientsTreatme nt of venous thrombos is 2.0 - 3.0Prevention o f embolism 2.0 - 3.0Prevention o f recurrent embol ism, or 3.0 - 4. 5 patients with mechanical pros thetic intravascular v foy IS PATIENT ON ANTICOAGULANTS ? ALas Lab been notified if Patient is on Heparin Drip? NOIf Yes, orderCBC, OCCULT BLOOD, PT every other day NTHROMBOPLASTIN TIME [id number] 14:34:00 Test Item Value Reference Range Interpretation Comments PTT ACTIVATED (test code = APTT) 31.6 secs 24.9-37.0 N IS PATIENT ON ANTICOAGULANTS ? NHas Lab been notified if Patient is on Heparin Drip? NOIf Yes, orderCBC, OCCULT BLOOD, PT every other day NCBC W/AUTO DIFF 2020-10-01 14:20:00 Test Item Value Reference Range Interpretation Comments WHITE BLOOD CELL (test code = WBC) 3.7 K/mm3 5.8-11.0 L RED BLOOD CELL (test code = RBC) 4.50 M/mm3 4.2-5.4 N HEMOGLOBIN (test code = HGB) 13.2 g/dL 12-16 N HEMATOCRIT (test code = HCT) 40.1 % 37-47 N MEAN CELL VOLUME (test code = MCV) 89 fL 80-98 N MEAN CELL HGB (test code = MCH) 29.3 pg 27-34 N MEAN CELL HGB CONCENTRATION (test 32.9 g/dL 30.8-34.1 N code = MCHC) RED CELL DISTRIBUTION WIDTH (test 14.2 % 11-16 N code = RDW) PLT (test code = PLT) 168 K/mm3 130-400 N MEAN PLATELET VOLUME (test code = 11.4 fL 8.9-12.1 N MPV) NEUTROPHIL % (test code = NT%) 62.9 % 45-70 N LYMPHOCYTE % (test code = LY%) 28.2 % 20-40 N MONOCYTE % (test code = MO%) 7.4 % 3-10 N EOSINOPHIL % (test code = EO%) 0.5 % 1-5 L BASOPHIL % (test code = BA%) 0.5 % 0.0-1.1 N NEUTROPHIL # (test code = NT#) 2.29 K/mm3 2.00-7.50 N LYMPHOCYTE # (test code = LY#) 1.03 K/mm3 1.50-4.00 L MONOCYTE # (test code = MO#) 0.27 K/mm3 0.2-0.8 N EOSINOPHIL # (test code = EO#) 0.02 K/mm3 0.04-0.4 L BASOPHIL # (test code = BA#) 0.02 K/mm3 0.02-0.10 N MANUAL DIFF REQUIRED (test code = NO MANUAL DIFF MDIFF) NUCLEATED RED BLOOD CELL (test 0 % 0-0 N code = NRBC)
[2021-10-17] MEDS ORDERED: KETOROLAC 30 MG/ML INJ ONE (13:59)
[2021-10-17] MEDS ORDERED: ONDANSETRON 4 MG/2 ML VIAL ONE (13:59)
[2021-10-17] MEDS ORDERED: MORPHINE 4 MG/ML SYR ONE ×2 (13:59→19:00)
[2021-10-17 14:12] LABS: Absolute Lymphocytes (CBC) 1.5 K/uL (0.7-4.9); Hematocrit 42.9 % (36.0-45.0); MPV 8.6 fL (7.6-11.3); RBC Red Blood Cell Count 4.71 M/uL (3.86-4.86)
[2021-10-17 14:28] LABS: Potassium 3.5 mmol/L (3.5-5.1)
--- NOTE | 2021-10-17 14:51 | RAD REPORT ---
EXAM DESCRIPTION: CT - Spine Lumbar Wo Con - 10/17/2021 2:31 pm CLINICAL HISTORY: Radiculopathy. Low back pain, trauma COMPARISON: LUMBAR SPINE W O CONTRAST dated 03/30/2013 TECHNIQUE: Axial noncontrast CT imaging of the lumbar spine was performed with coronal and sagittal re-formatted images. All CT scans are performed using dose optimization technique as appropriate and may include automated exposure control or mA/KV adjustment according to patient size. FINDINGS: Moderate burst fracture is suspected involving the T12 vertebral body. Mild posterior jacquelyn l compromise seen at this level. Fskf-oh-sfforafj soft tissue swelling surrounding the T12 level. Postoperative changes with hardware in place L3-5. 11 mm anterolisthesis is present of L5 on S1. IMPRESSION: Acute T12 burst fracture is seen with mild canal compromise.
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
[2021-10-17 22:26] VITALS: TEMP 97.9
[2021-10-17 22:35] VITALS: BP 132/57; O2SAT 98
== END 2021-10-17 19:04 | disposition short-term general hospital (02) ==
LOC: ER 13:24
DX: S22.082A Unstable burst fracture of T11-T12 vertebra, initial encounter for closed fracture (principal); V48.5XXA Car driver injured in noncollision transport accident in traffic accident, initial encounter; Z20.822 Contact with and (suspected) exposure to COVID-19; Z96.643 Presence of artificial hip joint, bilateral
CPT/HCPCS: 85025; 80048; 36415; 72131; 72170; 96375; 96374; 99285; U0003; J2405

== ENCOUNTER 2022-06-29 13:00 | Day surgery (SDC) | payer OTHER ==
[2022-06-27 15:23] LABS: Absolute Lymphocytes (CBC) 1.2 K/uL (0.7-4.9); Lymphocytes % 32.4 % (15.3-44.8); MCV 94.3 fL (80-100); MPV 8.7 fL (7.6-11.3); RBC Red Blood Cell Count 4.24 M/uL (3.86-4.86)
[2022-06-27 15:27] LABS: Protime INR 0.94
[2022-06-27 15:37] LABS: Potassium 4.4 mmol/L (3.5-5.1)
--- NOTE | 2022-06-28 14:13 | EKG ---
Test Date: 2022-06-27 Test Time: 14:59:32 Watch Parts Grinder: SALVADOR MEASUREMENT RESULTS: Intervals: Rate: 53 MA: 234 QRSD: 80 QT: 438 QTc: 410 [place]: P: 75 MA: 234 QRS: -22 T: 75 INTERPRETIVE STATEMENTS: Sinus bradycardia with 1st degree AV block Low voltage QRS Borderline ECG Compared to ECG 07/14/2016 14:38:54 First degree AV block now present Low QRS voltage now present Sinus rhythm no longer present Sinus arrhythmia no longer present Myocardial infarct finding no longer present Electronically Signed On 06-28-22 14:12:50 GARMENT ALTERATION EXAMINER by David Trimble
[2022-06-29] MEDS ORDERED: NA CHLORIDE 0.9% 500 ML ONE (13:07)
[2022-06-29] MEDS ORDERED: FENTANYL CITR 100 MCG/2 ML ONE (13:26)
[2022-06-29] MEDS ORDERED: ASPIRIN 325 MG TAB ONE (13:26)
[2022-06-29] MEDS ORDERED: CLOPIDOGREL 75 MG TABLET ONE (13:26)
[2022-06-29] MEDS ORDERED: HEPARIN 10,000 UNIT/10 ML VIAL IV ONE (13:26)
[2022-06-29] MEDS ORDERED: MIDAZOLAM HCL 2 MG/2 ML INJ ONE (13:26)
[2022-06-29] MEDS ORDERED: ATROPINE SULF 1 MG/10 ML SYR IV ONE (13:27)
[2022-06-29] MEDS ORDERED: TICAGRELOR 90 MG TABLET PO ONE (13:27)
[2022-06-29] MEDS ORDERED: HEPA 1000U/500MLS 2,000 UNIT/1,000 ML BAG IV ONE (13:42)
[2022-06-29] MEDS ORDERED: LIDOCAINE 1% 20 ML MDV ONE (13:52)
[2022-06-29 15:13] VITALS: TEMP 97
[2022-06-29 16:32] VITALS: BP 138/50; O2SAT 95
--- NOTE | 2022-06-29 17:48 | OP ---
Date of Procedure: 06/29/2022 Surgeon: KRISSY CHAND Procedures Performed: 1.Selective coronary angiogram. 2.Left heart catheterization. 3.Right heart catheterization. Indication: 1.Significant chest pain suggestive of unstable angina. 2.Significant shortness of breath on exertion. Access: 1.Right radial artery 6-Colombian closed with TR band. 2.Right IJ 7-Colombian closed on minimal pressure. Complications: None. Bleeding: Less than 20 mL. Anesthesia: Total sedation time was 45 minutes, used fentanyl and Versed. Description Of Procedure: After risks, benefits, alternatives were explained, the patient agreed to the procedure and signed informed consent. The patient was brought into the cardiac catheterization laboratory, prepped and draped in the usual sterile fashion. Then, I accessed right radial artery us ing pediatric micropuncture kit, placed 6-Colombian Slender sheath, and also used the ultrasound and neville ropuncture kit to access the right IJ and placed a 7-Colombian Tyrone sheath. Then, I took a 5-Colombian Mears 4.0 catheter into the aortic root over a J-wire through the radial artery access, engaged left main and then right coronary artery, took standard views. Then, LVEDP was measured. Pullback did n ot record gradient. Then, catheter was removed, sheath was removed, placed TR band with good hemosta sis. Then, I took a 7-Colombian Yoder-Theresa catheter through the right IJ, accessed into the RA, RV, PA, wedge and in all those locations, waveform and pressure were measured and then thermodilutional cardi ac output was measured. Then, I removed the Yoder and the sheath, and manual pressure was used for he mostasis. Findings: Selective coronary angiogram. 1.Left main; large and normal. 2.LAD; moderate sized and normal, normal diagonal branches. 3.Left circumflex; it is a dominant circulation and normal. 4.RCA; small, nondominant, and normal. 5.Elevated LVEDP at 70 mmHg. Right Heart Catheterization Numbers: RA pressure was 10. RV pressure was 26/4, mean of 9. PA press ures were 23/8, mean of 17, and wedge was 13. Cardiac output average was 4.03 L per minute. Conclusion: 1.Normal coronary arteries. 2.Slightly elevated LVEDP. Recommendation: Diuretics and if she does not do better, than Pulmonary evaluation. SR/MODL Voice ID: [id number] Report ID: [id number]
== END 2022-06-29 16:47 | disposition home or self-care (01) ==
LOC: CCL 13:00
PROVIDERS: ATTEND Internal Medicine
DX: R07.9 Chest pain, unspecified (principal); R06.02 Shortness of breath; I44.0 Atrioventricular block, first degree; I10 Essential (primary) hypertension; E78.5 Hyperlipidemia, unspecified; Z79.899 Other long term (current) drug therapy
CPT/HCPCS: 93005; 85025; 80048; 36415; 85610; 85730; 93460; 76937; C1893; Q9966; J2001; J2250; J3010; J7040; J1644; J0461